=== PATIENT | female | born 1990 | race Caucasian/White ===

== ENCOUNTER 2016-12-24 09:40 | Emergency (ER) | payer OTHER ==
[2016-12-24 10:13] VITALS: BP 141/85; PULSE 89; RESP 16; TEMP 97
[2016-12-24] MEDS ORDERED: methylPREDNISolone SOD SUCCI 125 MG/2 ML VIAL IM ONE (11:13)
--- NOTE | 2016-12-24 11:16 | ED ---
Back Pain HPI - General Chief Complaint: Back Pain/Injury Stated Complaint: back pain Time Seen by Provider: 12/24/16 10:45 Source: patient, RN notes reviewed - History of Present Illness Initial Comments: Patient is a 26-year-old female presents to the emergency room for evaluation of low back pain. Patient states she's been experiencing low back pain radiating down to her right leg since around [place] time. Patient states she went to see her primary care provider about 3 days ago and she was placed on Robaxin and naproxen. Patient states that she was sent to physical therapy. Patient states physical therapy is not helping and her pain is getting worse. Patient states the Robaxin and naproxen are not helping her symptoms. Patient states she she's having pain on the right side of her lower back that radiates down the posterior portion of her right leg. Patient denies numbness or tingling in her toes. Patient denies saddle anesthesia. Patient denies urinary or fecal incontinence. Patient denies any recent injury, fall or trauma to her low back. Patient states she has a follow-up appointment with her primary care provider not until next Saturday. Patient states she can't wait that long. Patient denies any other injuries or complaints at this time. Patient's his pain is worse when she is sitting. Patient states pain improves when she is laying down flat. - Related Data Home Medications Medication Instructions Recorded Confirmed Methocarbamol [Robaxin-750] 750 mg PO Q4H PRN 12/24/16 12/24/16 Naproxen Sodium [Anaprox DS] 550 mg PO Q12HR PRN 12/24/16 12/24/16 Previous Rx's Medication Instructions Recorded HYDROcodone/APAP 5-325MG [[place] 1 tab PO Q6HR PRN #10 tab 12/24/16 5-325] predniSONE 40 mg PO DAILY #4 tab 12/24/16 Allergies Allergy/AdvReac Type Severity Reaction Status Date / Time No Known Allergies Allergy Verified 12/24/16 10:54 Review of Systems ROS Statement: Those systems with pertinent positive or pertinent negative responses have been documented in the HPI. ROS Other: All systems not noted in ROS Statement are negative. Past Medical History Past Medical History: No Reported History History of Any Multi-Drug Resistant Organisms: None Reported Past Surgical History: No Surgical Hx Reported Past Psychological History: No Psychological Hx Reported Smoking Status: Never smoker Past Alcohol Use History: Rare Past Drug Use History: None Reported General Exam - General Exam Comments Initial Comments: Sitting on exam bed, no acute distress. Limitations: no limitations General appearance: alert, in no apparent distress Head exam: Present: atraumatic, normocephalic, normal inspection Eye exam: Present: normal appearance ENT exam: Present: normal exam Neck exam: Present: normal inspection Respiratory exam: Present: normal lung sounds bilaterally. Absent: respiratory distress Cardiovascular Exam: Present: regular rate, normal rhythm, normal heart sounds Extremities exam: Present: normal inspection, full ROM, normal capillary refill Back exam: Present: normal inspection, paraspinal tenderness (Right lumbosacral paraspinal tenderness) Expanded Back exam: Positive Straight Leg Raise: Right Neurological exam: Present: alert, oriented X3, CN II-XII intact Psychiatric exam: Present: normal affect, normal mood Skin exam: Present: warm, dry, intact, normal color. Absent: rash Course Vital Signs 12/24/16 10:09 Temperature 97.0 F L Pulse Rate 89 Respiratory 16 Rate Blood Pressure 141/85 O2 Sat by Pulse 100 Oximetry Medical Decision Making - Medical Decision Making Patient is a 26-year-old female presents emergency room for evaluation of right- sided low back pain. Patient has no neuro deficits. Will place patient on steroids and pain medications. Advised the patient follow up with her primary care provider for reevaluation. Advised patient to return for worsening symptoms. Patient states she understands everything that was discussed with her. Case discussed with Dr. Pham. Disposition Clinical Impression: Right sided sciatica Disposition: HOME SELF-CARE Condition: Good Instructions: Sciatica (ED) Additional Instructions: Warm moist heat. Take medications as needed. Please follow-up with primary care provider for reevaluation. If any new symptom arises or symptoms worsen, return to ER as soon as possible. Prescriptions: HYDROcodone/APAP 5-325MG [[place] 5-325] 1 tab PO Q6HR PRN #10 tab PRN Reason: Pain predniSONE 40 mg PO DAILY #4 tab Referrals: Sofia Major DO [Primary Care Provider] - 1-2 days Time of Disposition: 11:16
== END 2016-12-24 11:29 | disposition home or self-care (01) ==
LOC: EC 09:40
DX: M54.31 Sciatica, right side (principal)
CPT/HCPCS: 99283; 96372; J2930

== ENCOUNTER → 2017-01-10 | Outpatient (CLI) | payer OTHER ==
--- NOTE | 2017-01-11 08:16 | MR ---
EXAMINATION TYPE: MR lumbar spine wo con DATE OF EXAM: 01/10/2017 6:08 PM COMPARISON: NONE HISTORY: LBP with severe radiating pain down rt leg since 11-22-16 TECHNIQUE: T1 and T2 axial and sagittal images of the lumbar spine are submitted. FINDINGS: There is no abnormal signal seen within the visualized spinal cord or paraspinal soft tissu es. At L1-2 there is no evidence of degenerative disc disease, disc herniation, canal stenosis, or forami nal encroachment. At L2-3 there is no evidence of degenerative disc disease, disc herniation, canal stenosis, or forami nal encroachment. At L3-4 there is no evidence of degenerative disc disease, disc herniation, canal stenosis, or forami nal encroachment. At L4-5 there is disc desiccation with annular tear. There is a central and left paracentral broad-ba sed disc protrusion or tiny herniation with mild effacement of thecal sac. Neural foramina remain pat ent. No nerve root impingement. At L5-S1 there is disc desiccation and large right paracentral and central disc herniation with signi ficant compression of the thecal sac. There is narrowing of the right neural foramina and likely mass effect upon the cauda equina. IMPRESSION: 1. Large disc herniation centrally and paracentrally the right L5-S1 with significant compression of the thecal sac paracentrally to the right. 2. Annular tear and broad-based disc protrusion or small herniation L4-L5 centrally and paracentrally to the left with mild effacement of thecal sac but no foraminal encroachment or nerve root impingeme nt.
== END | disposition home or self-care (01) ==
LOC: RADMRIMAIN 16:16
PROVIDERS: ATTEND Family Medicine
DX: M51.17 Intervertebral disc disorders with radiculopathy, lumbosacral region (principal)
CPT/HCPCS: 72148

== ENCOUNTER → 2017-08-26 | Outpatient (CLI) | payer OTHER ==
[2017-08-26 14:25] VITALS: BMI 43.9
[2017-08-26 14:40] VITALS: BP 124/79; PULSE 85; RESP 16; TEMP 98.5
[2017-08-26 14:47] LABS: EKG EKG PERFORMED
--- NOTE | 2017-08-26 14:58 | P.HPBAR ---
Bariatric H&P - History & Physicial H&P Date: 08/26/17 History & Physicial: Visit/CC: sleeve consult Patient initial contact: Initial weight: 124.42 kg Initial weight in pounds: 274.30 Height: 5 ft 6.25 in Initial BMI: 43.9 Last weight: Current weight: 124.42 kg Current weight in pounds: 274.30 Current BMI: 43.9 [place] body weight (based on NIH guidelines): 59.534 kg Excess body weight loss: 0.0% The patient is a 27 year-old F who presents for Bariatric Assessment. The patient resents today for new patient sleeve gastrectomy consultation. She's had lifetime problems obesity. She has severe arthritis of her back. Past Medical History Past Medical History: Asthma, GERD/Reflux, Osteoarthritis (OA) Additional Past Medical History / Comment(s): Chronic back pain (L3-5 ruptured discs), arthritis in bilateral feet, History of Any Multi-Drug Resistant Organisms: None Reported Past Surgical History: No Surgical Hx Reported Past Anesthesia/Blood Transfusion Reactions: No Reported Reaction Past Psychological History: Anxiety Additional Psychological History / Comment(s): Takes Klonopin 0.5mg nightly Smoking Status: Never smoker Past Alcohol Use History: Rare Past Drug Use History: None Reported - Past Family History Mother Family Medical History: Neurologic Disorder Additional Family Medical History / Comment(s): epilepsy, Father Family Medical History: Asthma, Cancer, Diabetes Mellitus, Hypertension Additional Family Medical History / Comment(s): smoker, survivor of renal cancer Surgical - Exam Vital Signs Temp Pulse Resp BP 98.5 F 85 16 124/79 08/26/17 14:04 08/26/17 14:04 08/26/17 14:04 08/26/17 14:04 - General well developed, no distress - Eyes PERRL - ENT normal pinna - Neck no masses - Respiratory normal expansion - Cardiovascular Rhythm: regular - Abdomen Abdomen: soft, non tender Bariatric Assessment & Plan Plan: Family discussion with patient regarding sleeve gastrectomy. We went over the risks and benefits procedure including the risk of gastric perforation. Patient understands the risk of gastric perforation or staple line disruption. Patient will be scheduled for sleeve gastrectomy when she has arthritis. She' ll be scheduled for EGD and some preoperative labs. She'll follow-up in one month. Bariatric Checklist Checklist: Plan: Checklist: EGD: 1. Hiatal hernia: 2. H. Pylori: HgbA1c: Vitamin D: Smoking: Never smoker Primary care physician referral: Sofia Major ([facility] ) Psychiatry clearance: Cardiology clearance: Sleep study: Diet journal: VTE risk score: VTE risk level: Rehab needs at discharge:
[2017-08-26 15:15] LABS: CH 29.5; CHCM 32.7; HCT 45.3 % (34.0-46.0); HDW 2.46; HGB 14.4 gm/dL (11.4-16.0); MCH 28.9 pg (25.0-35.0); MCHC 31.8 g/dL (31.0-37.0); MCV 90.8 fL (80.0-100.0); Mean Platelet Volume 7.1; RBC 4.99 m/uL (3.80-5.40); RDW 14.1 % (11.5-15.5); WBC 9.1 k/uL (3.8-10.6)
[2017-08-26 15:24] LABS: ALT 64 U/L (9-52); AST 30 U/L (14-36); Alkaline Phosphatase 57 U/L (38-126); Anion Gap 11 mmol/L; Blood Urea Nitrogen 12 mg/dL (7-17); Calcium 9.6 mg/dL (8.4-10.2); Carbon Dioxide 26 mmol/L (22-30); Chloride 103 mmol/L (98-107); Glucose 79 mg/dL (74-99); Non-African American GFR(MDRD) >60 (>60 ml/min/1.73 sqM); Potassium 4.5 mmol/L (3.5-5.1); Sodium 140 mmol/L (137-145); Total Bilirubin 0.5 mg/dL (0.2-1.3); Total Protein 7.2 g/dL (6.3-8.2)
[2017-08-26 20:16] LABS: Hemoglobin A1C 5.4 % (4.2-6.1)
== END ==
LOC: BARWHC3 13:28
PROVIDERS: ATTEND Surgery
DX: Z01.818 Encounter for other preprocedural examination (principal); J45.909 Unspecified asthma, uncomplicated; K21.9 Gastro-esophageal reflux disease without esophagitis; M19.90 Unspecified osteoarthritis, unspecified site; F41.9 Anxiety disorder, unspecified
CPT/HCPCS: 36415; 80053; 82306; 83036; 84443; 85027; 93005

== ENCOUNTER 2017-09-04 08:52 | Day surgery (SDC) | payer OTHER ==
[2017-09-03 08:44] VITALS: BMI 44.2
[~2017-09-04 08:52] MED LIST: LACTATED RINGERS 1,000 ML IV SCH; LIDOCAINE 1% 20 ML VIAL (10MG/ML) FOR IV START INTRADERMA PRN
[2017-09-04 09:21] VITALS: RESP 16; TEMP 99
[2017-09-04] MEDS ORDERED: PROPOFOL 10 MG/ML 20 ML VIAL IV ONE (09:39)
[2017-09-04] MEDS ORDERED: LIDOCAINE 1% INJ 10MG/ML (20 ML MDV) ONE (09:39)
--- NOTE | 2017-09-04 09:45 | P.GSHP ---
History of Present Illness H&P Date: 09/04/17 Chief Complaint: GERD, morbid obesity Is a 19-year-old female who is undergoing workup for sleeve gastrectomy. Patient's history of GERD. She presents today for EGD. Past Medical History Past Medical History: Asthma, GERD/Reflux, Osteoarthritis (OA) Additional Past Medical History / Comment(s): Chronic back pain (L3-5 ruptured discs), IBS, arthritis in feet, History of Any Multi-Drug Resistant Organisms: None Reported Past Surgical History: No Surgical Hx Reported Additional Past Surgical History / Comment(s): oral surgery Past Anesthesia/Blood Transfusion Reactions: No Reported Reaction Smoking Status: Never smoker - Past Family History Mother Family Medical History: Neurologic Disorder Additional Family Medical History / Comment(s): epilepsy, Father Family Medical History: Cancer, Deep Vein Thrombosis (DVT) Additional Family Medical History / Comment(s): . Medications and Allergies Home Medications Medication Instructions Recorded Confirmed Type Acetaminophen-Codeine 300-30mg 1 tab PO HS 08/26/17 09/04/17 History [Tylenol #3] Escitalopram [Lexapro] 10 mg PO HS 09/03/17 09/04/17 History Gabapentin [Neurontin] 100 mg PO HS 09/03/17 09/04/17 History Allergies Allergy/AdvReac Type Severity Reaction Status Date / Time No Known Allergies Allergy Verified 09/04/17 09:05 Surgical - Exam Vital Signs Temp Pulse Resp BP Pulse Ox 99.0 F 100 16 125/77 99 09/04/17 09:15 09/04/17 09:15 09/04/17 09:15 09/04/17 09:15 09/04/17 09:15 - General well developed, no distress - Eyes PERRL - ENT normal pinna - Neck no masses - Respiratory normal expansion - Cardiovascular Rhythm: regular - Abdomen Abdomen: soft, non tender Assessment and Plan Plan: GERD. We'll perform EGD.
--- NOTE | 2017-09-04 09:55 | P.OP ---
Date of Procedure: 09/04/17 Preoperative Diagnosis: GERD Morbid obesity Postoperative Diagnosis: Gastritis No evidence of hiatal hernia Morbid obesity BMI 44 Procedure(s) Performed: EGD Anesthesia: MAC Surgeon: Tj Jorge Pathology: other (Antral) Condition: stable Disposition: PACU Description of Procedure: Patient's placed on the endoscopy table lateral position. He received IV sedation. The gastroscope placed oropharynx passed in the esophagus and stomach. Scope was then placed through the pylorus. First and second portion of the duodenum appeared normal. Scope was then brought back the antrum this appeared mildly inflamed. A biopsies performed. The scope was then retroflexed and the remainder stomach appeared normal. There is no hiatal hernia. The GE junction was at 40 cm. The distal esophagus appeared all. The proximal esophagus appeared normal. Scope was withdrawn for patient.
[2017-09-04 10:23] VITALS: BP 117/81; PULSE 65
== END 2017-09-04 11:15 | disposition home or self-care (01) ==
LOC: ORWHC2ENDO 08:52
PROVIDERS: ATTEND Surgery
DX: K29.50 Unspecified chronic gastritis without bleeding (principal); E66.01 Morbid (severe) obesity due to excess calories; Z68.41 Body mass index [BMI] 40.0-44.9, adult; J45.909 Unspecified asthma, uncomplicated; M19.90 Unspecified osteoarthritis, unspecified site; G89.29 Other chronic pain; M54.5 Low back pain; Z79.891 Long term (current) use of opiate analgesic; Z79.899 Other long term (current) drug therapy
CPT/HCPCS: 81025; 88305; 88342; 43239; J2001; J2704

== ENCOUNTER → 2017-10-21 | Outpatient (CLI) | payer OTHER ==
[2017-10-21 13:26] VITALS: BP 125/82; PULSE 81; TEMP 98.4; BMI 44.2
--- NOTE | 2017-10-21 14:51 | P.HPBAR ---
Bariatric H&P - History & Physicial H&P Date: 10/21/17 History & Physicial: Visit/CC: preoo visit Patient initial contact: Initial weight: 124.42 kg Initial weight in pounds: 274.30 Height: 5 ft 7.25 in Initial BMI: 42.6 Last weight: Current weight: 129.092 kg Current weight in pounds: 284.60 Current BMI: 44.2 [place] body weight (based on NIH guidelines): 61.802 kg Excess body weight loss: The patient is a 27 year-old F who presents for Bariatric Assessment. The patient resents today for a new patient consultation. She sees Dr. arvizu as an outpatient. The patient is requesting sleeve yesterday. She has had lifetime problems obesity. Her current BMI is 44. Past Medical History Past Medical History: Asthma, GERD/Reflux, Osteoarthritis (OA) Additional Past Medical History / Comment(s): Chronic back pain (L3-5 ruptured discs), IBS, arthritis in feet, History of Any Multi-Drug Resistant Organisms: None Reported Past Surgical History: No Surgical Hx Reported Additional Past Surgical History / Comment(s): oral surgery Past Anesthesia/Blood Transfusion Reactions: No Reported Reaction Past Psychological History: Anxiety Additional Psychological History / Comment(s): . Smoking Status: Never smoker Past Alcohol Use History: Rare Past Drug Use History: None Reported - Past Family History Mother Family Medical History: Neurologic Disorder Additional Family Medical History / Comment(s): epilepsy, Father Family Medical History: Cancer, Deep Vein Thrombosis (DVT) Additional Family Medical History / Comment(s): . Surgical - Exam Vital Signs Temp Pulse BP 98.4 F 81 125/82 10/21/17 13:21 10/21/17 13:21 10/21/17 13:21 - General well developed, no distress - Eyes PERRL - ENT normal pinna - Neck no masses - Respiratory normal expansion - Cardiovascular Rhythm: regular - Abdomen Abdomen: soft, non tender Bariatric Assessment & Plan Plan: Moderate obesity. Patient will scheduled for sleeve gastrectomy when she obtains insurance authorization. Bariatric Checklist Checklist: Plan: Checklist: EGD: 1. Hiatal hernia: 2. H. Pylori: HgbA1c: Vitamin D: Smoking: Never smoker Primary care physician referral: Sofia Major ([facility] ) Psychiatry clearance: Cardiology clearance: Sleep study: Diet journal: VTE risk score: VTE risk level: Rehab needs at discharge:
== END | disposition home or self-care (01) ==
LOC: BARWHC3 12:34
PROVIDERS: ATTEND Surgery
DX: Z01.818 Encounter for other preprocedural examination (principal); E66.01 Morbid (severe) obesity due to excess calories; F32.9 Major depressive disorder, single episode, unspecified
CPT/HCPCS: 99211

== ENCOUNTER → 2017-11-04 | Outpatient (CLI) | payer OTHER ==
[2017-11-04 13:08] VITALS: BMI 45.3
== END | disposition home or self-care (01) ==
LOC: BARWHC3 08:49
PROVIDERS: ATTEND Surgery
DX: E66.01 Morbid (severe) obesity due to excess calories (principal)
CPT/HCPCS: 97804

== ENCOUNTER → 2017-12-19 | Outpatient (CLI) | payer OTHER ==
[2017-12-19 13:43] LABS: Basophils # (A) 0.1 k/uL (0-0.2); Basophils % (A) 1 %; Eosinophils # (A) 0.2 k/uL (0-0.7); Eosinophils % (A) 2 %; HCT 43.1 % (34.0-46.0); HGB 13.6 gm/dL (11.4-16.0); Lymphocytes # (A) 2.7 k/uL (1.0-4.8); Lymphocytes % (A) 25 %; MCH 28.1 pg (25.0-35.0); MCHC 31.5 g/dL (31.0-37.0); MCV 89.3 fL (80.0-100.0); Mean Platelet Volume 7.5; Monocytes # (A) 0.6 k/uL (0-1.0); Monocytes % (A) 6 %; Neutrophils # (A) 7.1 k/uL (1.3-7.7); Neutrophils % (A) 65 %; Platelet Count 255 k/uL (150-450); RBC 4.83 m/uL (3.80-5.40); RDW 14.2 % (11.5-15.5); WBC 10.9 k/uL (3.8-10.6)
[2017-12-19 13:52] LABS: ALT 61 U/L (9-52); AST 29 U/L (14-36); Albumin 4.4 g/dL (3.5-5.0); Alkaline Phosphatase 48 U/L (38-126); Anion Gap 11 mmol/L; Blood Urea Nitrogen 10 mg/dL (7-17); Calcium 10.2 mg/dL (8.4-10.2); Carbon Dioxide 27 mmol/L (22-30); Chloride 104 mmol/L (98-107); Glucose 100 mg/dL (74-99); Potassium 4.3 mmol/L (3.5-5.1); Sodium 142 mmol/L (137-145); Total Bilirubin 0.3 mg/dL (0.2-1.3); Total Protein 7.5 g/dL (6.3-8.2)
== END | disposition home or self-care (01) ==
LOC: LABPAT 12:31
PROVIDERS: ATTEND Surgery
DX: Z01.812 Encounter for preprocedural laboratory examination (principal)
CPT/HCPCS: 36415; 80053; 85025

== ENCOUNTER 2017-12-25 12:51 | Day surgery (SDC) | payer OTHER ==
[2017-12-18 11:54] VITALS: BMI 43.8
[~2017-12-25 12:51] MED LIST changes: +HYDROmorphone 0.5 MG/0.5 ML SYRINGE IVP PRN
--- NOTE | 2017-12-25 13:35 | P.GSHP ---
History of Present Illness H&P Date: 12/25/17 Chief Complaint: Cholecystitis, right upper quadrant pain This is a 27-year-old female referred from Dr. Sofia arvizu. Patient's echo placed around quadrant pain. Her recent HIDA scan shows abnormal ejection fraction consistent with chronic cholecystitis. Past Medical History Past Medical History: Asthma, GERD/Reflux, Osteoarthritis (OA) Additional Past Medical History / Comment(s): Chronic back pain (L3-5 ruptured discs), IBS, arthritis in feet, History of Any Multi-Drug Resistant Organisms: None Reported Past Surgical History: No Surgical Hx Reported Additional Past Surgical History / Comment(s): oral surgery Past Anesthesia/Blood Transfusion Reactions: No Reported Reaction, Family Hisory of Malignant Hyperthermia Additional Past Anesthesia/Blood Transfusion Reaction / Comment(s): brother becomes violent with anesthesia Smoking Status: Never smoker - Past Family History Mother Family Medical History: Neurologic Disorder Additional Family Medical History / Comment(s): epilepsy, Father Family Medical History: Cancer, Deep Vein Thrombosis (DVT) Additional Family Medical History / Comment(s): . Medications and Allergies Home Medications Medication Instructions Recorded Confirmed Type Acetaminophen-Codeine 300-30mg 1 tab PO HS 08/26/17 12/18/17 History [Tylenol #3] Gabapentin [Neurontin] 100 mg PO HS 09/03/17 12/18/17 History Cholestyramine (with Sugar) 4 gm PO TID 10/21/17 12/18/17 History [Cholestyramine Packet] Hyoscyamine Sulfate [Levsin] 0.125 mg PO DIRECTED 10/21/17 12/18/17 History Dm/PE/Acetaminophen/Doxylamine 1 each PO HS PRN 12/18/17 12/18/17 History [[place] Plus Day-Night Cp] Ibuprofen [Motrin] 800 mg PO HS PRN 12/18/17 12/18/17 History Allergies Allergy/AdvReac Type Severity Reaction Status Date / Time No Known Allergies Allergy Verified 12/25/17 13:18 Surgical - Exam Vital Signs Temp Pulse Resp BP Pulse Ox 98 F 121 H 16 142/79 97 12/25/17 13:28 12/25/17 13:28 12/25/17 13:28 12/25/17 13:28 12/25/17 13:28 - General well developed, no distress - Eyes PERRL - ENT normal pinna - Neck no masses - Respiratory normal expansion - Cardiovascular Rhythm: regular - Abdomen Mild right upper quadrant pain Abdomen: soft Assessment and Plan Assessment: Chronic cholecystitis. We'll perform laparoscopic cholecystectomy.
[2017-12-25] MEDS ORDERED: ONDANSETRON 4 MG/2 ML VIAL IVP ONE (13:38)
[2017-12-25] MEDS ORDERED: HEPARIN SODIUM,PORCINE 5,000 UNIT/ML 1 ML VIAL SQ ONE (13:38)
[2017-12-25] MEDS ORDERED: HYDROmorphone (PF) 1 MG/ML ONE (14:20)
[2017-12-25] MEDS ORDERED: MIDAZOLAM 2 MG/2 ML VIAL ONE (14:20)
[2017-12-25] MEDS ORDERED: ROCURONIUM BROMIDE 10 MG/ML 10 ML VIAL IV ONE (14:20)
[2017-12-25] MEDS ORDERED: fentaNYL (PF) 50 MCG/ML 2 ML AMP ONE (14:20)
[2017-12-25] MEDS ORDERED: LIDOCAINE 1% INJ 10MG/ML (20 ML MDV) ONE (14:20)
[2017-12-25] MEDS ORDERED: KETOROLAC 30 MG/ML 1 ML VIAL ONE (14:20)
[2017-12-25] MEDS ORDERED: NEOSTIGMINE 1 MG/ML 10 ML VIAL ONE (14:20)
[2017-12-25] MEDS ORDERED: PROPOFOL 10 MG/ML 20 ML VIAL IV ONE (14:20)
[2017-12-25] MEDS ORDERED: GLYCOPYRROLATE 0.2 MG/ML 2 ML VIAL ONE (14:20)
--- NOTE | 2017-12-25 14:38 | P.GSHP ---
History of Present Illness H&P Date: 12/25/17 Chief Complaint: GERD This is a 27-year-old female who presents today for laparoscopic hiatal hernia repair. Patient has had long-standing problems reflux.The patient has had long- standing problems with reflux esophagitis. The patient underwent recent EGD is found have evidence of esophagitis. Patient has been well informed on the procedure of laparoscopic hiatal hernia repair. . The patient is aware the risk of the conversion to the open procedure, risk of injury to the stomach, liver and spleen. The patient is also a risk of recurrent GERD and dysphagia symptoms. The patient understands there is a postoperative diet of full liquids for 2 weeks after surgery. Past Medical History Past Medical History: Asthma, GERD/Reflux, Osteoarthritis (OA) Additional Past Medical History / Comment(s): Chronic back pain (L3-5 ruptured discs), IBS, arthritis in feet, History of Any Multi-Drug Resistant Organisms: None Reported Past Surgical History: No Surgical Hx Reported Additional Past Surgical History / Comment(s): oral surgery Past Anesthesia/Blood Transfusion Reactions: No Reported Reaction, Family Hisory of Malignant Hyperthermia Additional Past Anesthesia/Blood Transfusion Reaction / Comment(s): brother becomes violent with anesthesia Smoking Status: Never smoker - Past Family History Mother Family Medical History: Neurologic Disorder Additional Family Medical History / Comment(s): epilepsy, Father Family Medical History: Cancer, Deep Vein Thrombosis (DVT) Additional Family Medical History / Comment(s): . Medications and Allergies Home Medications Medication Instructions Recorded Confirmed Type Acetaminophen-Codeine 300-30mg 1 tab PO HS 08/26/17 12/18/17 History [Tylenol #3] Gabapentin [Neurontin] 100 mg PO HS 09/03/17 12/18/17 History Cholestyramine (with Sugar) 4 gm PO TID 10/21/17 12/18/17 History [Cholestyramine Packet] Hyoscyamine Sulfate [Levsin] 0.125 mg PO DIRECTED 10/21/17 12/18/17 History Dm/PE/Acetaminophen/Doxylamine 1 each PO HS PRN 12/18/17 12/18/17 History [[place] Plus Day-Night Cp] Ibuprofen [Motrin] 800 mg PO HS PRN 12/18/17 12/18/17 History Allergies Allergy/AdvReac Type Severity Reaction Status Date / Time No Known Allergies Allergy Verified 12/25/17 13:18 Surgical - Exam Vital Signs Temp Pulse Resp BP Pulse Ox 98 F 121 H 16 142/79 97 12/25/17 13:28 12/25/17 13:28 12/25/17 13:28 12/25/17 13:28 12/25/17 13:28 - General well developed, no distress - Eyes PERRL - ENT normal pinna - Neck no masses - Respiratory normal expansion - Cardiovascular Rhythm: regular - Abdomen Abdomen: soft, non tender Assessment and Plan Assessment: Hiatal hernia. We'll perform laparoscopic repair.
[2017-12-25] MEDS ORDERED: BUPIVACAINE (PF) 0.25% 30 ML VIAL SQ ONE (14:45)
[2017-12-25] MEDS ORDERED: MEPERIDINE 50 MG/ML SYRINGE IVP ONE ×2 (15:35→15:45)
[2017-12-25 15:44] VITALS: TEMP 97.1
[2017-12-25 16:37] VITALS: RESP 18
--- NOTE | 2017-12-25 16:51 | P.OP ---
Date of Procedure: 12/25/17 Preoperative Diagnosis: Cholecystitis Postoperative Diagnosis: Cholecystitis Procedure(s) Performed: Laparoscopic cholecystectomy Anesthesia: MOOK Surgeon: Tj Jorge Estimated Blood Loss (ml): 5 Pathology: other Condition: stable Disposition: PACU Description of Procedure: The patient was placed on the operating table. The patient received a general endotracheal tube anesthesia. The patients abdomen was prepped and draped in the usual sterile fashion. Through an infraumbilical stab incision, the fascia of the anterior abdominal wall was grasped with a pair of Kochers and then the Veress needle was placed in the peritoneal cavity. Position of the Veress needle was confirmed with positive drop test. The abdomen was then insufflated. After adequate insufflation, the 10 mm trocar was placed in the peritoneal cavity. Following this the laparoscope was placed in the peritoneal cavity. The patient was placed in the head-up, right side up position and then a 5 mm trocar was placed in the right lateral and right subcostal position under direct visualization. A 8 mm trocar was placed in the epigastric position. The gallbladder was grasped in the fundus and infundibulum. Traction on the gallbladder was placed in the lateral and the cephalad positions. The triangle of Calot was visualized.. The cystic duct was bluntly dissected until the union of the cystic duct and common bile duct was seen. The cystic duct was then divided and sealed with the Harmonic scissors. A PDS Endoloop was then placed throughout the cystic duct stump. The cystic artery divided and sealed with the Harmonic scissors. The gallbladder was then removed from the liver bed using Harmonic scissors. The gallbladder was then extracted through the epigastric port site. Operative field was checked for any bleeding spots and Harmonic scissors was used to coagulate the liver bed. The abdomen was irrigated. The trocars were removed. The skin was closed using interrupted 3-0 Vicryl suture. Dermabond dressing were applied. The patient tolerated the procedure well.
[2017-12-25] MEDS ORDERED: HYDROmorphone 1 MG/ML 1 ML SYRINGE IVP ONE (16:55)
[2017-12-25 17:48] VITALS: BP 130/84; PULSE 73
== END 2017-12-25 18:08 | disposition home or self-care (01) ==
LOC: OR 12:51
PROVIDERS: ATTEND Surgery
DX: K81.1 Chronic cholecystitis (principal); J45.909 Unspecified asthma, uncomplicated; K21.9 Gastro-esophageal reflux disease without esophagitis; K58.9 Irritable bowel syndrome, unspecified; M19.079 Primary osteoarthritis, unspecified ankle and foot; G89.29 Other chronic pain; M54.9 Dorsalgia, unspecified; Z79.899 Other long term (current) drug therapy
CPT/HCPCS: 47562; 81025; J2250; J1644; J2710; J2175; J0690; J2405; J2001; J3010; J1885; J1170; J2704; 88304

== ENCOUNTER → 2017-12-30 | Outpatient (CLI) | payer OTHER ==
[2017-12-30 14:11] VITALS: BP 126/81; PULSE 119; RESP 16; TEMP 98; BMI 44.0
--- NOTE | 2017-12-30 14:58 | P.HPBAR ---
Bariatric H&P - History & Physicial H&P Date: 12/30/17 History & Physicial: Visit/CC: gallbladder follow up Patient initial contact: Initial weight: 124.42 kg Initial weight in pounds: 274.30 Height: 5 ft 6.25 in Initial BMI: 43.9 Last weight: Current weight: 124.738 kg Current weight in pounds: 275.00 Current BMI: 44.0 [place] body weight (based on NIH guidelines): 59.534 kg Excess body weight loss: The patient is a 27 year-old F who presents for Bariatric Assessment. The patient is status post laparoscopic cholecystectomy the week ago.. She has minimal complaints of incisional pain. Currently she was denied for her sleeve gastrectomy she is undergoing sleep apnea testing. Past Medical History Past Medical History: Asthma, GERD/Reflux, Osteoarthritis (OA) Additional Past Medical History / Comment(s): Chronic back pain (L3-5 ruptured discs), IBS, arthritis in feet, History of Any Multi-Drug Resistant Organisms: None Reported Past Surgical History: No Surgical Hx Reported Additional Past Surgical History / Comment(s): oral surgery gallbladder Past Anesthesia/Blood Transfusion Reactions: No Reported Reaction, Family Hisory of Malignant Hyperthermia Additional Past Anesthesia/Blood Transfusion Reaction / Comm: brother becomes violent with anesthesia Past Psychological History: Anxiety Additional Psychological History / Comment(s): . Smoking Status: Never smoker Past Alcohol Use History: Rare Past Drug Use History: None Reported - Past Family History Mother Family Medical History: Neurologic Disorder Additional Family Medical History / Comment(s): epilepsy, Father Family Medical History: Cancer, Deep Vein Thrombosis (DVT) Additional Family Medical History / Comment(s): . Surgical - Exam Vital Signs Temp Pulse Resp BP 98.0 F 119 H 16 126/81 12/30/17 14:07 12/30/17 14:07 12/30/17 14:07 12/30/17 14:07 - General well developed, no distress - Eyes PERRL - ENT normal pinna - Neck no masses - Respiratory normal expansion - Abdomen Incision sites clean dry and intact Abdomen: soft, non tender Bariatric Assessment & Plan Plan: Status post laparoscopic cholestatic. Patient will follow-up in one month. She will have her sleep study performed. We will attempt to reauthorized her once her study has been performed. He takes anesthesia these of injury drinks and Bariatric Checklist Checklist: Plan: Checklist: EGD: 1. Hiatal hernia: 2. H. Pylori: HgbA1c: Vitamin D: Smoking: Never smoker Primary care physician referral: Sofia Major ([facility] ) Psychiatry clearance: Cardiology clearance: Sleep study: Diet journal: VTE risk score: VTE risk level: Rehab needs at discharge:
== END | disposition home or self-care (01) ==
LOC: BARWHC3 13:55
PROVIDERS: ATTEND Surgery
DX: Z48.815 Encounter for surgical aftercare following surgery on the digestive system (principal); G89.18 Other acute postprocedural pain; G89.29 Other chronic pain; J45.909 Unspecified asthma, uncomplicated; K21.9 Gastro-esophageal reflux disease without esophagitis; M19.90 Unspecified osteoarthritis, unspecified site; F41.9 Anxiety disorder, unspecified; Z90.49 Acquired absence of other specified parts of digestive tract
CPT/HCPCS: 99211

== ENCOUNTER → 2018-01-07 | Outpatient (CLI) | payer OTHER ==
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
== END | disposition home or self-care (01) ==
LOC: SLEEP 15:06
PROVIDERS: ATTEND Internal Medicine Critical Care Medicine
DX: R40.0 Somnolence (principal); M19.90 Unspecified osteoarthritis, unspecified site; K21.9 Gastro-esophageal reflux disease without esophagitis; M51.36 Other intervertebral disc degeneration, lumbar region; E66.01 Morbid (severe) obesity due to excess calories; Z68.42 Body mass index [BMI] 45.0-49.9, adult; Z79.899 Other long term (current) drug therapy
CPT/HCPCS: 99211

== ENCOUNTER → 2018-01-27 | Outpatient (CLI) | payer OTHER ==
[2018-01-27 15:53] VITALS: BP 125/67; PULSE 98; RESP 15; TEMP 98.3; BMI 42.7
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
== END | disposition home or self-care (01) ==
LOC: BARWHC3 13:43
PROVIDERS: ATTEND Surgery
DX: Z48.815 Encounter for surgical aftercare following surgery on the digestive system (principal); Z98.84 Bariatric surgery status
CPT/HCPCS: 99211

== ENCOUNTER 2018-10-19 03:32 | Emergency (ER) | payer OTHER ==
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
[2018-10-19 04:11] LABS: Appearance,Urine Clear (Clear); Bacteria,Urine Rare /hpf; Bilirubin,Urine Negative (Negative); Blood,Urine Large (Negative); Color,Urine Yellow; Glucose,Urine (UA) Negative (Negative); Hyaline Casts,Urine 28 /lpf (0-2); Ketones,Urine Negative (Negative); Leukocyte Esterase,Urine Negative (Negative); Mucus,Urine Few /hpf; Nitrite,Urine Negative (Negative); Protein,Urine 1+ (Negative); RBC,Urine >182 /hpf (0-5); Specific Gravity,Urine 1.022 (1.001-1.035); Squamous Epithelial Cell,Urine 5 /hpf (0-4); Urobilinogen,Urine <2.0 mg/dL (<2.0); WBC,Urine 3 /hpf (0-5)
[2018-10-19] MEDS ORDERED: KETOROLAC 30 MG/ML 1 ML VIAL IVP ONE (04:15)
[2018-10-19] MEDS ORDERED: SODIUM CHLORIDE 0.9% 1,000 ML IV ONE (04:54)
--- NOTE | 2018-10-19 05:06 | CT ---
EXAMINATION TYPE: CT renal stones wo con DATE OF EXAM: 10/19/2018 HISTORY: left sided flank pain. CT DLP: 1094.4 mGycm. Automated Exposure Control for Dose Reduction was Utilized. TECHNIQUE: CT scan of the abdomen and pelvis is performed without oral or IV contrast. COMPARISON: None FINDINGS: Lung bases are clear. There is no pleural effusion. Heart size is normal. There is no anthony cardial effusion. Liver spleen pancreas appear normal. Bile ducts are not dilated. There is cholecystectomy clips. Stom ach appears normal. There is no adrenal mass. Kidneys show normal size and contour. There is no hydronephrosis. Ureters a re not dilated. I see no renal calculus. There is no evidence of a renal mass. There is no retroperit joseph adenopathy. Ureters are not dilated. Appendix appears normal. Uterus is anteverted. Bladder dis tends smoothly. There is no inguinal hernia. There is no free fluid in the pelvis. There is no intest inal wall thickening. There are no dilated loops. There is no sign of a bowel obstruction. There is n o mesenteric edema or adenopathy. There are scattered mesenteric lymph nodes that measure up to 1 cm. I see no ureteral calculus. There are a few phleboliths in the pelvis. Lumbar vertebra have normal a lignment. Posterior elements are intact. Disc spaces are normal. There is no compression fracture. IMPRESSION: No renal stone or obstruction. Normal appendix. No sign of acute abdomen and pelvis.
[2018-10-19 06:03] VITALS: BP 111/62; PULSE 81; RESP 18; TEMP 98.3
--- NOTE | 2018-10-21 06:16 | CDI ---
Documentation Clarification OP Dear Christine PERALTA, DO Please do addendum to ED report for HPI , Physical exam and MDM. Thank you, Mercy Barr Sales Enablement Manager If you have any question, Please contact delivery manager at [phone] [facility]
== END 2018-10-19 06:07 | disposition home or self-care (01) ==
LOC: EC 03:32
DX: R10.9 Unspecified abdominal pain (principal); R30.0 Dysuria; R35.0 Frequency of micturition; M19.90 Unspecified osteoarthritis, unspecified site; Z79.899 Other long term (current) drug therapy; Z90.49 Acquired absence of other specified parts of digestive tract
CPT/HCPCS: 81001; 81025; 74150; 99284; 96374; 96361; J1885

== ENCOUNTER 2018-12-08 04:02 | Emergency (ER) | payer OTHER, MEDICAID ==
[2018-12-08 04:12] VITALS: RESP 18; TEMP 98.5
[2018-12-08] MEDS ORDERED: DICYCLOMINE 10 MG/ML 2 ML AMP IM STA (05:20)
[2018-12-08] MEDS ORDERED: SODIUM CHLORIDE 0.9% 1,000 ML IV STA (05:20)
[2018-12-08] MEDS ORDERED: ONDANSETRON 4 MG/2 ML VIAL IVP STA (05:20)
[2018-12-08] MEDS ORDERED: DOXYCYCLINE 100 MG CAP PO STA (05:25)
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
[2018-12-08 06:00] LABS: Basophils % (A) 1 %; Eosinophils # (A) 0.1 k/uL (0-0.7); Eosinophils % (A) 1 %; HCT 46.2 % (34.0-46.0); Lymphocytes # (A) 0.8 k/uL (1.0-4.8); Lymphocytes % (A) 13 %; MCHC 32.4 g/dL (31.0-37.0); MCV 86.5 fL (80.0-100.0); Mean Platelet Volume 6.8; Monocytes # (A) 0.4 k/uL (0-1.0); Monocytes % (A) 6 %; Neutrophils # (A) 4.9 k/uL (1.3-7.7); Neutrophils % (A) 78 %; Platelet Count 240 k/uL (150-450); RBC 5.34 m/uL (3.80-5.40); RDW 12.8 % (11.5-15.5); WBC 6.3 k/uL (3.8-10.6)
[2018-12-08 06:04] LABS: Appearance,Urine Cloudy (Clear); Bilirubin,Urine 1+ (Negative); Blood,Urine Large (Negative); Color,Urine Dark Brown; Glucose,Urine (UA) Negative (Negative); Ketones,Urine Trace (Negative); Leukocyte Esterase,Urine Moderate (Negative); Mucus,Urine Occasional /hpf; Nitrite,Urine Negative (Negative); Protein,Urine 2+ (Negative); RBC,Urine >182 /hpf (0-5); Specific Gravity,Urine 1.027 (1.001-1.035); Squamous Epithelial Cell,Urine 14 /hpf (0-4); WBC,Urine 51 /hpf (0-5)
[2018-12-08 06:09] LABS: ALT 63 U/L (9-52); AST 36 U/L (14-36); Albumin 4.4 g/dL (3.5-5.0); Alkaline Phosphatase 43 U/L (38-126); Amylase 38 U/L (30-110); Anion Gap 12 mmol/L; Blood Urea Nitrogen 10 mg/dL (7-17); Calcium 9.7 mg/dL (8.4-10.2); Carbon Dioxide 18 mmol/L (22-30); Chloride 109 mmol/L (98-107); Glucose 122 mg/dL (74-99); Lipase 114 U/L (23-300); Potassium 4.1 mmol/L (3.5-5.1); Sodium 139 mmol/L (137-145); Total Bilirubin 0.8 mg/dL (0.2-1.3); Total Protein 7.5 g/dL (6.3-8.2)
[2018-12-08] MEDS ORDERED: SODIUM CHLORIDE 0.9% 1,000 ML IV ONE (07:05)
[2018-12-08] MEDS ORDERED: METOCLOPRAMIDE 5 MG/ML 2 ML VIAL IVP STA (07:10)
[2018-12-08] MEDS ORDERED: diphenhydrAMINE 50 MG/ML 1 ML VIAL IVP STA (07:10)
[2018-12-08 08:52] VITALS: BP 121/70; PULSE 92
== END 2018-12-08 08:51 | disposition home or self-care (01) ==
LOC: EC 04:02
DX: R11.2 Nausea with vomiting, unspecified (principal); R19.7 Diarrhea, unspecified; R10.84 Generalized abdominal pain; Z32.02 Encounter for pregnancy test, result negative; Z79.899 Other long term (current) drug therapy; Z90.49 Acquired absence of other specified parts of digestive tract
CPT/HCPCS: 36415; 80053; 82150; 83690; 85025; 81001; 81025; 87045; 87046; 99284; 96374; 96375 ×2; 96361 ×2; 96372; J1200; J0500; J2765; J2405

== ENCOUNTER 2018-12-10 14:58 | Emergency (ER) | payer MEDICAID, OTHER ==
[2018-12-10] MEDS ORDERED: METOCLOPRAMIDE 5 MG/ML 2 ML VIAL IVP STA (17:29)
[2018-12-10] MEDS ORDERED: SODIUM CHLORIDE 0.9% 2,000 ML IV STA (17:29)
[2018-12-10] MEDS ORDERED: diphenhydrAMINE 50 MG/ML 1 ML VIAL IVP STA (17:29)
[2018-12-10] MEDS ORDERED: PANTOPRAZOLE 40 MG/10 ML VIAL IVP STA (17:29)
[2018-12-10] MEDS ORDERED: KETOROLAC 30 MG/ML 1 ML VIAL IVP STA (17:29)
[2018-12-10] MEDS ORDERED: DIPHENOX-ATROP 2.5-0.025 MG 1 EACH TAB PO STA (17:30)
--- NOTE | 2018-12-10 18:17 | ED ---
Abdominal Pain HPI - General Source: patient, RN notes reviewed Mode of arrival: ambulatory Limitations: no limitations <Manuel Babb - Last Filed: 12/10/18 19:54> <Sandrine Curran - Last Filed: 12/11/18 00:38> - General Chief Complaint: Abdominal Pain Stated Complaint: NVD Time Seen by Provider: 12/10/18 17:05 - History of Present Illness Initial Comments: 28-year-old female presents emergency Department chief complaint nausea vomiting diarrhea. Patient states she seen here couple days ago for some her symptoms. Patient states when she feels dehydrated, leg cramps. Patient states she has abdominal cramping in. Liquid diarrhea. Patient states is no melena hematochezia. Patient states she is treated with antibiotics secondary to urinary tract infection and possible infection from being exposed to a sick ago. Patient denies any sick contacts no fever no chills. Denies any chest pain or shortness breath. (Manuel Babb) - Related Data Home Medications Medication Instructions Recorded Confirmed Ibuprofen [Motrin] 800 mg PO TID PRN 12/18/17 12/10/18 Gabapentin 800 mg PO TID 12/08/18 12/10/18 Previous Rx's Medication Instructions Recorded Doxycycline [Vibramycin] 100 mg PO BID #14 cap 12/08/18 Nitrofurantoin Monohyd/M-Cryst 100 mg PO Q12HR #10 cap 12/08/18 [Macrobid] Ondansetron [Zofran ODT] 4 mg PO Q8HR #12 tab 12/08/18 Allergies Allergy/AdvReac Type Severity Reaction Status Date / Time No Known Allergies Allergy Verified 12/10/18 18:55 Review of Systems ROS Other: All systems not noted in ROS Statement are negative. <Manuel Babb - Last Filed: 12/10/18 19:54> ROS Other: All systems not noted in ROS Statement are negative. <Sandrine Curran - Last Filed: 12/11/18 00:38> ROS Statement: Those systems with pertinent positive or pertinent negative responses have been documented in the HPI. Past Medical History Past Medical History: Asthma, GERD/Reflux, Osteoarthritis (OA) Additional Past Medical History / Comment(s): Chronic back pain (L3-5 ruptured discs), IBS, arthritis in feet, History of Any Multi-Drug Resistant Organisms: None Reported Past Surgical History: Cholecystectomy Additional Past Surgical History / Comment(s): oral surgery Past Anesthesia/Blood Transfusion Reactions: No Reported Reaction, Family Hisory of Malignant Hyperthermia Additional Past Anesthesia/Blood Transfusion Reaction / Comment(s): brother becomes violent with anesthesia Past Psychological History: Anxiety Smoking Status: Never smoker Past Alcohol Use History: Rare Past Drug Use History: None Reported - Past Family History Mother Family Medical History: Neurologic Disorder Additional Family Medical History / Comment(s): epilepsy, Father Family Medical History: Cancer, Deep Vein Thrombosis (DVT) Additional Family Medical History / Comment(s): . <Manuel Babb M - Last Filed: 12/10/18 19:54> General Exam Limitations: no limitations General appearance: alert, in no apparent distress Head exam: Present: atraumatic, normocephalic, normal inspection Neck exam: Present: normal inspection, full ROM. Absent: tenderness, meningismus, lymphadenopathy Respiratory exam: Present: normal lung sounds bilaterally. Absent: respiratory distress, wheezes, rales, rhonchi, stridor Cardiovascular Exam: Present: normal rhythm, tachycardia, normal heart sounds. Absent: systolic murmur, diastolic murmur, rubs, gallop, clicks GI/Abdominal exam: Present: soft, tenderness (Mild upper), normal bowel sounds. Absent: distended, guarding, rebound, rigid Back exam: Absent: CVA tenderness (R), CVA tenderness (L) Skin exam: Present: warm, dry, intact, normal color. Absent: rash <Manuel Babb M - Last Filed: 12/10/18 19:54> Vital Signs 12/10/18 12/10/18 12/10/18 15:31 19:30 20:29 Temperature 98 F 98.1 F Pulse Rate 111 H 71 72 Respiratory 18 18 18 Rate Blood Pressure 134/90 112/77 107/62 O2 Sat by Pulse 99 98 98 Oximetry 12/10/18 21:40 Temperature 98.2 F Pulse Rate 76 Respiratory 16 Rate Blood Pressure 110/68 O2 Sat by Pulse 99 Oximetry Medical Decision Making - Lab Data Result diagrams: 12/10/18 17:52 12/10/18 17:52 <Manuel Babb M - Last Filed: 12/10/18 19:54> - Lab Data Result diagrams: 12/10/18 17:52 12/10/18 17:52 <Sandrine Curran L - Last Filed: 12/11/18 00:38> - Medical Decision Making 28-year-old female presented emergency department for nausea vomiting. Patient was hydrated with 2 L of fluid. Patient's labs reveal mild elevated LFTs. Ultrasound was obtained. Patient did feel better after IV fluids and antiemetics. Patient we discharged with antiemetics, Lomotil. (Manuel Babb) - Lab Data Lab Results 12/10/18 12/10/18 12/10/18 Range/Units 17:52 17:52 17:52 WBC 7.9 (3.8-10.6) k/uL RBC 5.25 (3.80-5.40) m/uL Hgb 15.0 (11.4-16.0) gm/dL Hct 45.0 (34.0-46.0) % MCV 85.7 (80.0-100.0) fL MCH 28.5 (25.0-35.0) pg MCHC 33.3 (31.0-37.0) g/dL RDW 12.7 (11.5-15.5) % Plt Count 272 (150-450) k/uL Neutrophils % 58 % Lymphocytes % 29 % Monocytes % 5 % Eosinophils % 3 % Basophils % 1 % Neutrophils # 4.6 (1.3-7.7) k/uL Lymphocytes # 2.3 (1.0-4.8) k/uL Monocytes # 0.4 (0-1.0) k/uL Eosinophils # 0.3 (0-0.7) k/uL Basophils # 0.1 (0-0.2) k/uL Sodium 139 (137-145) mmol/L Potassium 3.5 (3.5-5.1) mmol/L Chloride 111 H (98-107) mmol/L Carbon Dioxide 18 L (22-30) mmol/L Anion Gap 10 mmol/L BUN 12 (7-17) mg/dL Creatinine 0.96 (0.52-1.04) mg/dL Est GFR (CKD-EPI)AfAm >90 (>60 ml/min/1.73 sqM) Est GFR (CKD-EPI)NonAf 80 (>60 ml/min/1.73 sqM) Glucose 90 (74-99) mg/dL Plasma Lactic Acid Javier (0.7-2.0) mmol/L Calcium 9.7 (8.4-10.2) mg/dL Total Bilirubin 0.9 (0.2-1.3) mg/dL AST 99 H (14-36) U/L ALT 189 H (9-52) U/L Alkaline Phosphatase 56 (38-126) U/L Total Protein 7.4 (6.3-8.2) g/dL Albumin 4.2 (3.5-5.0) g/dL Amylase 39 (30-110) U/L Lipase 152 (23-300) U/L Urine Color Dark Brown Urine Appearance Cloudy H (Clear) Urine pH 6.0 (5.0-8.0) Ur Specific Rosalia 1.029 (1.001-1.035) Urine Protein 2+ H (Negative) Urine Glucose (UA) Negative (Negative) Urine Ketones 1+ H (Negative) Urine Blood Large H (Negative) Urine Nitrite Negative (Negative) Urine Bilirubin 1+ H (Negative) Urine Urobilinogen <2.0 (<2.0) mg/dL Ur Leukocyte Esterase Trace H (Negative) Urine RBC >182 H (0-5) /hpf Urine WBC 4 (0-5) /hpf Ur Squamous Epith Cells 3 (0-4) /hpf Urine Mucus Moderate H (None) /hpf Urine HCG, Qual (Not Detectd) Hepatitis A IgM Ab 12/10/18 12/10/18 12/10/18 Range/Units 17:52 17:52 19:22 WBC (3.8-10.6) k/uL RBC (3.80-5.40) m/uL Hgb (11.4-16.0) gm/dL Hct (34.0-46.0) % MCV (80.0-100.0) fL MCH (25.0-35.0) pg MCHC (31.0-37.0) g/dL RDW (11.5-15.5) % Plt Count (150-450) k/uL Neutrophils % % Lymphocytes % % Monocytes % % Eosinophils % % Basophils % % Neutrophils # (1.3-7.7) k/uL Lymphocytes # (1.0-4.8) k/uL Monocytes # (0-1.0) k/uL Eosinophils # (0-0.7) k/uL Basophils # (0-0.2) k/uL Sodium (137-145) mmol/L Potassium (3.5-5.1) mmol/L Chloride (98-107) mmol/L Carbon Dioxide (22-30) mmol/L Anion Gap mmol/L BUN (7-17) mg/dL Creatinine (0.52-1.04) mg/dL Est GFR (CKD-EPI)AfAm (>60 ml/min/1.73 sqM) Est GFR (CKD-EPI)NonAf (>60 ml/min/1.73 sqM) Glucose (74-99) mg/dL Plasma Lactic Acid Javier 1.5 (0.7-2.0) mmol/L Calcium (8.4-10.2) mg/dL Total Bilirubin (0.2-1.3) mg/dL AST (14-36) U/L ALT (9-52) U/L Alkaline Phosphatase (38-126) U/L Total Protein (6.3-8.2) g/dL Albumin (3.5-5.0) g/dL Amylase (30-110) U/L Lipase (23-300) U/L Urine Color Urine Appearance (Clear) Urine pH (5.0-8.0) Ur Specific Rosalia (1.001-1.035) Urine Protein (Negative) Urine Glucose (UA) (Negative) Urine Ketones (Negative) Urine Blood (Negative) Urine Nitrite (Negative) Urine Bilirubin (Negative) Urine Urobilinogen (<2.0) mg/dL Ur Leukocyte Esterase (Negative) Urine RBC (0-5) /hpf Urine WBC (0-5) /hpf Ur Squamous Epith Cells (0-4) /hpf Urine Mucus (None) /hpf Urine HCG, Qual Not Detected (Not Detectd) Hepatitis A IgM Ab NEGATIVE Disposition <Manuel Babb M - Last Filed: 12/10/18 19:54> Is patient prescribed a controlled substance at d/c from ED?: No Time of Disposition: 21:06 <Sandrine Curran - Last Filed: 12/11/18 00:38> Clinical Impression: Nausea vomiting and diarrhea, Dehydration Disposition: HOME SELF-CARE Condition: Stable Instructions: Acute Diarrhea (ED) Additional Instructions: Please return to the Emergency Department if symptoms worsen or any other concerns. Referrals: Sofia Major DO [Primary Care Provider] - 1-2 days Wayne Garcia MD [STAFF PHYSICIAN] - 1-2 days
[2018-12-10 18:25] LABS: Basophils # (A) 0.1 k/uL (0-0.2); Basophils % (A) 1 %; Eosinophils # (A) 0.3 k/uL (0-0.7); Eosinophils % (A) 3 %; Lymphocytes # (A) 2.3 k/uL (1.0-4.8); Lymphocytes % (A) 29 %; MCH 28.5 pg (25.0-35.0); MCHC 33.3 g/dL (31.0-37.0); MCV 85.7 fL (80.0-100.0); Mean Platelet Volume 6.5; Monocytes # (A) 0.4 k/uL (0-1.0); Monocytes % (A) 5 %; Neutrophils # (A) 4.6 k/uL (1.3-7.7); Neutrophils % (A) 58 %; Platelet Count 272 k/uL (150-450); RBC 5.25 m/uL (3.80-5.40); RDW 12.7 % (11.5-15.5); WBC 7.9 k/uL (3.8-10.6)
[2018-12-10 18:34] LABS: Appearance,Urine Cloudy (Clear); Bilirubin,Urine 1+ (Negative); Blood,Urine Large (Negative); Color,Urine Dark Brown; Glucose,Urine (UA) Negative (Negative); Ketones,Urine 1+ (Negative); Leukocyte Esterase,Urine Trace (Negative); Mucus,Urine Moderate /hpf; Nitrite,Urine Negative (Negative); Protein,Urine 2+ (Negative); RBC,Urine >182 /hpf (0-5); Specific Gravity,Urine 1.029 (1.001-1.035); Squamous Epithelial Cell,Urine 3 /hpf (0-4); Urobilinogen,Urine <2.0 mg/dL (<2.0); WBC,Urine 4 /hpf (0-5)
[2018-12-10 18:58] LABS: ALT 189 U/L (9-52); AST 99 U/L (14-36); Albumin 4.2 g/dL (3.5-5.0); Alkaline Phosphatase 56 U/L (38-126); Amylase 39 U/L (30-110); Anion Gap 10 mmol/L; Blood Urea Nitrogen 12 mg/dL (7-17); Calcium 9.7 mg/dL (8.4-10.2); Carbon Dioxide 18 mmol/L (22-30); Chloride 111 mmol/L (98-107); Glucose 90 mg/dL (74-99); Lipase 152 U/L (23-300); Potassium 3.5 mmol/L (3.5-5.1); Sodium 139 mmol/L (137-145); Total Bilirubin 0.9 mg/dL (0.2-1.3); Total Protein 7.4 g/dL (6.3-8.2)
[2018-12-10] MEDS ORDERED: DIPHENOX-ATROP STARTER PACK 8 TAB BTL PO STA (19:55)
[2018-12-10 20:08] LABS: Hepatitis A AB IgM Index 0.01; Hepatitis A Antibody IgM NEGATIVE
--- NOTE | 2018-12-10 20:15 | US ---
EXAMINATION TYPE: US abdomen limited DATE OF EXAM: 12/10/2018 COMPARISON: NONE CLINICAL HISTORY: Pain. Pain cholecystectomy. EXAM MEASUREMENTS: Liver Length: 17.5 cm Gallbladder Wall: Surgically absent cm CBD: 0.8 cm Right Kidney: 11.3 x 4.5 x 4.3 cm Pancreas: Obscured by bowel gas Liver: Increased attenuation Gallbladder: Surgically absent Evidence for sonographic Lyle's sign: No CBD: wnl Right Kidney: wnl IMPRESSION: Cholecystectomy. No dilated ducts. No free fluid.
[2018-12-10 21:40] VITALS: BP 110/68; PULSE 76; RESP 16; TEMP 98.2
[2018-12-11 05:47] LABS: Hepatitis B Core IgM Non-Reactive (Non-Reactive)
== END 2018-12-10 21:40 | disposition home or self-care (01) ==
LOC: EC 14:58
DX: E86.0 Dehydration (principal); R11.2 Nausea with vomiting, unspecified; R19.7 Diarrhea, unspecified; R79.89 Other specified abnormal findings of blood chemistry; R10.84 Generalized abdominal pain; R25.2 Cramp and spasm; K58.9 Irritable bowel syndrome, unspecified; Z90.49 Acquired absence of other specified parts of digestive tract; Z79.899 Other long term (current) drug therapy
CPT/HCPCS: 36415; 80053; 80074; 82150; 83605; 83690; 85025; 81001; 81025; 87040; 87086; 76705; 99284; 96374; 96375 ×3; 96361; J1200; J2765; J1885; C9113

== ENCOUNTER 2020-02-02 11:05 | Emergency (ER) | payer BC, MEDICAID, OTHER ==
[2020-02-02 11:14] VITALS: TEMP 98.2
[2020-02-02] MEDS ORDERED: MORPHINE SULFATE 4 MG/ML SYRINGE IV STA (11:35)
[2020-02-02] MEDS ORDERED: IOPAMIDOL CONTRAST (ORAL USE) VIAL PO PRN (11:35)
[2020-02-02] MEDS ORDERED: PANTOPRAZOLE 40 MG/10 ML VIAL IVP STA (11:35)
[2020-02-02] MEDS ORDERED: ONDANSETRON 4 MG/2 ML VIAL IVP STA (11:35)
[2020-02-02] MEDS ORDERED: SODIUM CHLORIDE 0.9% 1,000 ML IV STA ×2 (11:35)
--- NOTE | 2020-02-02 11:46 | ED ---
Abdominal Pain HPI - General Chief Complaint: Abdominal Pain Stated Complaint: 17 days post op surgery/poss bowel obstruction Time Seen by Provider: 02/02/20 11:22 Source: patient, RN notes reviewed, old records reviewed Mode of arrival: ambulatory Limitations: no limitations - History of Present Illness Initial Comments: Patient is a 29-year-old female who presents emergency Department today with left-sided abdominal pain, and unable to have a bowel movement for the past 11 days. Patient reports that she had gastric sleeve surgery performed accurately 18 days ago in [place]. Patient reports that she did this for cost and insurance reasons. Patient states that she has advanced to a pured diet. She has had no vomiting. She does report some occasional nausea. Patient states she's tried to use MiraLAX normal bowel movements but is unsuccessful. She reports that she was at work today and started to double over due to pain and was brought to the ER by her coworker. - Related Data Home Medications Medication Instructions Recorded Confirmed Calcium Patch 1 patch TRANSDERM DAILY 02/02/20 02/02/20 Iron Patch 1 patch TRANSDERM DAILY 02/02/20 02/02/20 Multivitamin Patch 1 patch TRANSDERM DAILY 02/02/20 02/02/20 Vitmain B-12 Patch 1 patch TRANSDERM DAILY 02/02/20 02/02/20 Allergies Allergy/AdvReac Type Severity Reaction Status Date / Time No Known Allergies Allergy Verified 02/02/20 12:41 Review of Systems ROS Statement: Those systems with pertinent positive or pertinent negative responses have been documented in the HPI. ROS Other: All systems not noted in ROS Statement are negative. Past Medical History Past Medical History: Asthma, GERD/Reflux, Osteoarthritis (OA) Additional Past Medical History / Comment(s): Chronic back pain (L3-5 ruptured discs), IBS, arthritis in feet, History of Any Multi-Drug Resistant Organisms: None Reported Past Surgical History: Bariatric Surgery, Cholecystectomy Additional Past Surgical History / Comment(s): oral surgery gastric sleeve Past Anesthesia/Blood Transfusion Reactions: No Reported Reaction, Family Hisory of Malignant Hyperthermia Additional Past Anesthesia/Blood Transfusion Reaction / Comment(s): brother becomes violent with anesthesia Past Psychological History: Anxiety Smoking Status: Never smoker Past Alcohol Use History: Rare Past Drug Use History: None Reported - Past Family History Mother Family Medical History: Neurologic Disorder Additional Family Medical History / Comment(s): epilepsy, Father Family Medical History: Cancer, Deep Vein Thrombosis (DVT) Additional Family Medical History / Comment(s): . General Exam - General Exam Comments Initial Comments: Alert and oriented 29-year-old female. No distress. Limitations: no limitations General appearance: alert, in no apparent distress Head exam: Present: atraumatic, normocephalic, normal inspection Eye exam: Present: normal appearance, PERRL, EOMI. Absent: scleral icterus, conjunctival injection, periorbital swelling ENT exam: Present: normal exam, mucous membranes moist Neck exam: Present: normal inspection. Absent: tenderness, meningismus, lymphadenopathy Respiratory exam: Present: normal lung sounds bilaterally. Absent: respiratory distress, wheezes, rales, rhonchi, stridor Cardiovascular Exam: Present: regular rate, normal rhythm, normal heart sounds. Absent: systolic murmur, diastolic murmur, rubs, gallop, clicks GI/Abdominal exam: Present: soft, tenderness (Left lower quadrant abdominal tenderness), normal bowel sounds. Absent: distended, guarding, rebound, rigid Extremities exam: Present: normal inspection, full ROM, normal capillary refill. Absent: tenderness, pedal edema, joint swelling, calf tenderness Back exam: Present: normal inspection Neurological exam: Present: alert, oriented X3, CN II-XII intact Psychiatric exam: Present: normal affect, normal mood Skin exam: Present: warm, dry, intact, normal color. Absent: rash Course Vital Signs 02/02/20 02/02/20 02/02/20 11:11 11:14 13:16 Temperature 98.2 F Pulse Rate 90 83 Respiratory 16 20 16 Rate Blood Pressure 153/83 115/62 O2 Sat by Pulse 100 97 Oximetry Medical Decision Making - Medical Decision Making 29-year-old female presents emergency department today from left abdominal pain. Patient is 18 days post gastric sleeve surgery. She isn't vomiting. She has some left lower quadrant tenderness. Chest and she's not had a bowel movement in 11 days. She's been a menstrual period diet. Patient at this time has normal lab work. Due to recent surgery and lack of bowel movement CTs were com pleted. She does report that she is still passing gas. CT shows no signs pneumoperitoneum. There is a right cyst on the ovary and further follow-up. He for ultrasound. I did discuss this with the Patient. Patient's given theravac Back and enema did have small bowel movement after. I discussed continuing MiraLAX and discussing follow-up with her primary care Dr. . Patient advised she developed a fever or worsening pain or symptoms she can return to the ER for further evaluation. - Lab Data Result diagrams: 02/02/20 11:54 02/02/20 11:54 Lab Results 02/02/20 02/02/20 02/02/20 Range/Units 11:54 11:54 11:54 WBC 7.0 (3.8-10.6) k/uL RBC 5.13 (3.80-5.40) m/uL Hgb 15.0 (11.4-16.0) gm/dL Hct 45.1 (34.0-46.0) % MCV 87.9 (80.0-100.0) fL MCH 29.2 (25.0-35.0) pg MCHC 33.2 (31.0-37.0) g/dL RDW 12.7 (11.5-15.5) % Plt Count 214 (150-450) k/uL Neutrophils % 68 % Lymphocytes % 21 % Monocytes % 6 % Eosinophils % 2 % Basophils % 1 % Neutrophils # 4.8 (1.3-7.7) k/uL Lymphocytes # 1.5 (1.0-4.8) k/uL Monocytes # 0.4 (0-1.0) k/uL Eosinophils # 0.1 (0-0.7) k/uL Basophils # 0.1 (0-0.2) k/uL Sodium 141 (137-145) mmol/L Potassium 3.9 (3.5-5.1) mmol/L Chloride 107 (98-107) mmol/L Carbon Dioxide 20 L (22-30) mmol/L Anion Gap 14 mmol/L BUN 11 (7-17) mg/dL Creatinine 0.68 (0.52-1.04) mg/dL Est GFR (CKD-EPI)AfAm >90 (>60 ml/min/1.73 sqM) Est GFR (CKD-EPI)NonAf >90 (>60 ml/min/1.73 sqM) Glucose 100 H (74-99) mg/dL Calcium 9.6 (8.4-10.2) mg/dL Total Bilirubin 0.8 (0.2-1.3) mg/dL AST 32 (14-36) U/L ALT 38 H (4-34) U/L Alkaline Phosphatase 66 (38-126) U/L Total Protein 7.7 (6.3-8.2) g/dL Albumin 4.7 (3.5-5.0) g/dL Amylase 40 (30-110) U/L Lipase 323 H (23-300) U/L Urine Color Yellow Urine Appearance Cloudy H (Clear) Urine pH 7.5 (5.0-8.0) Ur Specific [place] 1.028 (1.001-1.035) Urine Protein 1+ H (Negative) Urine Glucose (UA) Negative (Negative) Urine Ketones 4+ H (Negative) Urine Blood Negative (Negative) Urine Nitrite Negative (Negative) Urine Bilirubin Negative (Negative) Urine Urobilinogen 8.0 (<2.0) mg/dL Ur Leukocyte Esterase Small H (Negative) Urine WBC 4 (0-5) /hpf Ur Squamous Epith Cells 10 H (0-4) /hpf Urine Mucus Few H (None) /hpf - Radiology Data Radiology results: report reviewed CT shows no pneumoperitoneum and the Patient after gastric sleeve. Had stranding in the left rectus abdominal muscle and subcutaneous tissues of the left mid abdomen. Likely inflammatory from recent surgery. Hepatic steatosis. Cystic right adnexal lesion may represent a physiologic cyst however nonemergent follow-up with ultrasound Is recommended. Prominent size of the spleen approaching criteria for splint or megaly. Disposition Clinical Impression: Constipation, Right ovarian cyst, S/P gastric surgery Disposition: HOME SELF-CARE Condition: Good Instructions (If sedation given, give patient instructions): Constipation (ED) Additional Instructions: Continue to increase water intake and clear liquids. Walk frequently. Patient can also continue MiraLAX to promote bowel movements. Follow-up with PCP. Return to the ED if there is any fevers or other alarming signs or symptoms that occur. Is patient prescribed a controlled substance at d/c from ED?: No Referrals: Sofia Major DO [Primary Care Provider] - 1-2 days Time of Disposition: 13:52
[2020-02-02 12:14] LABS: Basophils # (A) 0.1 k/uL (0-0.2); Basophils % (A) 1 %; Eosinophils # (A) 0.1 k/uL (0-0.7); Eosinophils % (A) 2 %; HCT 45.1 % (34.0-46.0); Lymphocytes # (A) 1.5 k/uL (1.0-4.8); Lymphocytes % (A) 21 %; MCH 29.2 pg (25.0-35.0); MCHC 33.2 g/dL (31.0-37.0); MCV 87.9 fL (80.0-100.0); Mean Platelet Volume 7.9; Monocytes # (A) 0.4 k/uL (0-1.0); Monocytes % (A) 6 %; Neutrophils # (A) 4.8 k/uL (1.3-7.7); Neutrophils % (A) 68 %; Platelet Count 214 k/uL (150-450); RBC 5.13 m/uL (3.80-5.40); RDW 12.7 % (11.5-15.5)
[2020-02-02 12:19] LABS: Appearance,Urine Cloudy (Clear); Bilirubin,Urine Negative (Negative); Blood,Urine Negative (Negative); Color,Urine Yellow; Glucose,Urine (UA) Negative (Negative); Ketones,Urine 4+ (Negative); Leukocyte Esterase,Urine Small (Negative); Mucus,Urine Few /hpf; Nitrite,Urine Negative (Negative); PH, Urine 7.5 (5.0-8.0); Protein,Urine 1+ (Negative); Specific Gravity,Urine 1.028 (1.001-1.035); Squamous Epithelial Cell,Urine 10 /hpf (0-4); WBC,Urine 4 /hpf (0-5)
[2020-02-02 12:30] LABS: ALT 38 U/L (4-34); AST 32 U/L (14-36); African American GFR (CKD) >90 (>60 ml/min/1.73 sqM); Albumin 4.7 g/dL (3.5-5.0); Alkaline Phosphatase 66 U/L (38-126); Amylase 40 U/L (30-110); Anion Gap 14 mmol/L; Blood Urea Nitrogen 11 mg/dL (7-17); Calcium 9.6 mg/dL (8.4-10.2); Carbon Dioxide 20 mmol/L (22-30); Chloride 107 mmol/L (98-107); Glucose 100 mg/dL (74-99); Non-African American GFR(CKD) >90 (>60 ml/min/1.73 sqM); Potassium 3.9 mmol/L (3.5-5.1); Sodium 141 mmol/L (137-145); Total Bilirubin 0.8 mg/dL (0.2-1.3); Total Protein 7.7 g/dL (6.3-8.2)
--- NOTE | 2020-02-02 12:56 | CT ---
EXAMINATION TYPE: CT abdomen pelvis w con DATE OF EXAM: 02/02/2020 HISTORY: LLQ pain CT DLP: 2159.7mGycm Automated Exposure Control for Dose Reduction was Utilized. CONTRAST: CT scan of the abdomen and pelvis is performed with IV Contrast, patient injected with 100 mL of Isov ue 300. COMPARISON: 10/19/2018 FINDINGS: LUNG BASES: No significant abnormality is appreciated. LIVER/GB: Hepatic parenchyma is diffusely hypoattenuated in comparison to that of the spleen, most co mmonly seen in hepatic steatosis. This finding limits evaluation for hepatic masses. Probable more fo isaac fatty infiltration in the fissure for the falciform ligament. No intrahepatic biliary ductal dila tation. Gallbladder is surgically absent. PANCREAS: No significant abnormality is seen. SPLEEN: Prominent size measuring 13.0 cm in craniocaudal dimension. Small splenule seen adjacent to t he [place] spleen. ADRENALS: No significant abnormality is seen. KIDNEYS: Too small to accurately characterize left lower pole renal lesion is subcentimeter on delaye d imaging only. No hydronephrosis of either kidney. BOWEL: Partial gastrectomy has been performed with recent gastric sleeve. UTERUS/ADNEXA: Fluid attenuated right adnexal 3.8 cm cystic lesion is seen. Pelvic ultrasound is shoshana mmended on a nonemergent basis for further characterization. Scant amount of free fluid in the mid level game designer ior cul-de-sac is likely physiologic in nature LYMPH NODES: No greater than 1cm abdominal or pelvic lymph nodes are appreciated. OSSEOUS STRUCTURES: Mild levoscoliosis of the lumbar spine. OTHER: There is patent stranding in the left mid abdominal subcutaneous tissues just over the rectus abdominous muscle, possibly postsurgical. No pneumoperitoneum. IMPRESSION: 1. No pneumoperitoneum in this patient status post recent gastric sleeve. There is fat stranding jessica g the left rectus abdominal muscle and subcutaneous tissues of the left mid abdomen, likely inflammat ory from the recent surgery. 2. Hepatic steatosis. 3. Cystic right adnexal lesion that may represent a physiologic cyst however nonemergent follow-up fu ll characterization with pelvic ultrasound is recommended. 4. Prominent size of the spleen approaching criteria for splenomegaly.
[2020-02-02] MEDS ORDERED: DOCUSATE 283 MG/5 ML ENEMA RECTAL STA (13:01)
[2020-02-02 13:17] VITALS: BP 115/62; PULSE 83; RESP 16
== END 2020-02-02 14:47 | disposition home or self-care (01) ==
LOC: EC 11:05
DX: K59.00 Constipation, unspecified (principal); N83.201 Unspecified ovarian cyst, right side; R11.0 Nausea; Z87.19 Personal history of other diseases of the digestive system; Z98.84 Bariatric surgery status; Z90.49 Acquired absence of other specified parts of digestive tract
CPT/HCPCS: 99284; 96374; 96375 ×2; 96361 ×3; 36415; 80053; 82150; 83690; 85025; 81001; 74177; J2270; J2405; C9113; Q9967

== ENCOUNTER → 2020-12-08 | Outpatient (CLI) | payer BC | END | disposition home or self-care (01) | LOC: LABWHC1 07:00 | PROVIDERS: ATTEND Obstetrics & Gynecology | DX: Z36.9 Encounter for antenatal screening, unspecified (principal) | CPT/HCPCS: 36415; 82950 ==

== ENCOUNTER 2021-01-07 08:47 | Emergency (ER) | payer BC, OTHER ==
[2021-01-07 09:01] VITALS: BP 135/87; PULSE 88; RESP 18; TEMP 98.8
[2021-01-07 09:40] LABS: Amorphous Sediment,Urine Rare /hpf; Appearance,Urine Turbid (Clear); Bacteria,Urine Occasional /hpf; Bilirubin,Urine Negative (Negative); Blood,Urine Moderate (Negative); Color,Urine Yellow; Glucose,Urine (UA) Negative (Negative); Ketones,Urine Negative (Negative); Leukocyte Esterase,Urine Trace (Negative); Mucus,Urine Rare /hpf; Nitrite,Urine Negative (Negative); PH, Urine 7.5 (5.0-8.0); Protein,Urine Negative (Negative); RBC,Urine 25 /hpf (0-5); Specific Gravity,Urine 1.015 (1.001-1.035); Squamous Epithelial Cell,Urine 4 /hpf (0-4); Urobilinogen,Urine <2.0 mg/dL (<2.0); WBC,Urine 1 /hpf (0-5)
[2021-01-07] MEDS ORDERED: MORPHINE SULFATE 2 MG/ML SYRINGE IVP STA (09:55)
[2021-01-07] MEDS ORDERED: ACETAMINOPHEN TAB 500 MG TAB PO STA (10:35)
[2021-01-07 10:37] LABS: Basophils % (A) 0 %; Eosinophils % (A) 0 %; HCT 36.8 % (34.0-46.0); Lymphocytes # (A) 1.5 k/uL (1.0-4.8); Lymphocytes % (A) 18 %; MCH 31.4 pg (25.0-35.0); MCHC 35.2 g/dL (31.0-37.0); MCV 89.3 fL (80.0-100.0); Mean Platelet Volume 7.2; Monocytes # (A) 0.5 k/uL (0-1.0); Monocytes % (A) 6 %; Neutrophils # (A) 6.1 k/uL (1.3-7.7); Neutrophils % (A) 73 %; Platelet Count 180 k/uL (150-450); RBC 4.12 m/uL (3.80-5.40); WBC 8.3 k/uL (3.8-10.6)
[2021-01-07 10:48] LABS: ALT 9 U/L (4-34); AST 16 U/L (14-36); African American GFR (CKD) >90 (>60 ml/min/1.73 sqM); Albumin 3.5 g/dL (3.5-5.0); Alkaline Phosphatase 64 U/L (38-126); Anion Gap 9 mmol/L; Blood Urea Nitrogen 7 mg/dL (7-17); Calcium 9.3 mg/dL (8.4-10.2); Carbon Dioxide 22 mmol/L (22-30); Chloride 105 mmol/L (98-107); Glucose 72 mg/dL (74-99); Non-African American GFR(CKD) >90 (>60 ml/min/1.73 sqM); Potassium 3.9 mmol/L (3.5-5.1); Sodium 136 mmol/L (137-145); Total Bilirubin 0.4 mg/dL (0.2-1.3); Total Protein 6.3 g/dL (6.3-8.2)
--- NOTE | 2021-01-07 10:58 | US ---
EXAMINATION TYPE: US renals and bladder DATE OF EXAM: 01/07/2021 COMPARISON: CLINICAL HISTORY: Kidney stone. Right flank pain. 31 weeks . Patient voided before exam. EXAM MEASUREMENTS: Right Kidney: 12.9 x 6.6 x 6.2 cm Left Kidney: 12.1 x 5.6 x 5.7 cm Right Kidney: Moderate hydronephrosis visualized. Lower pole echogenic focus= 1.2 x 1.2 cm Left Kidney: No hydronephrosis or masses seen Bladder: Not seen due to recently bladder void. Bilateral Jets not seen There is no evidence for hydronephrosis at this point in time. No nephrolithiasis is seen. No geraldine s are identified. The urinary bladder is anechoic. Bilateral ureteral jets are seen. IMPRESSION: Moderate right-sided hydronephrosis.
--- NOTE | 2021-01-07 10:59 | US ---
EXAMINATION TYPE: US OB >= 14 wk fetus DATE OF EXAM: 01/07/2021 COMPARISON: None CLINICAL HISTORY: Flank pain Right flank pain. No spotting. TECHNIQUE: Transabdominal (TA) GESTATIONAL AGE / DATING Physician Established: (31 weeks/1 days) EDC: 03/10/2021 Dates by Current Scan: (33 weeks/1 days) EDC: 02/24/2021 Beta HCG (if available): Not available at this time SURVEY IUP: Single PLACENTA: Anterior PREVIA: No Previa BURCE: 15.1 cm Normal CERVICAL LENGTH (transabdominal: norm > 3.0cm): 3.2 cm BIOMETRY PRESENTATION: Vertex BPD: 8.8 cm 35 weeks / 5 days HC: 32.1 cm 36 weeks / 1 days AC: 27.7 cm 31 weeks / 5 days FL: 6.1 cm 31 weeks / 4 days ESTIMATED WEIGHT IN GRAMS: 1978 grams ESTIMATED WEIGHT IN LBS/OZ: 4 lbs. 6 oz. WEIGHT PERCENTAGE BASED ON ESTABLISHED DATES: 81.0% HC/AC: 1.2 Abnormal FL/AC: 21.9 Normal HEART RATE: 143 bpm RHYTHM: Normal IMPRESSION: Single live IUP measuring 33 weeks 1 day on today's exam.
--- NOTE | 2021-01-07 11:16 | ED ---
General Adult HPI - General Chief complaint: Urogenital Stated complaint: Poss UTI, 31 wks Time Seen by Provider: 01/07/21 09:00 Source: patient, RN notes reviewed, old records reviewed Mode of arrival: ambulatory Limitations: no limitations - History of Present Illness Initial comments: This is a 30-year-old female who is 31 weeks . Patient comes in today because she's been having right-sided flank pain and CVA pain. Patient states she's also been having frequent urinations. Patient denies any dysuria. Patient denies any fever. Patient denies any abdominal pain. Patient denies any vaginal discharge or bleeding. Patient states she's never had a kidney stone or urinary tract infection before she is not sure at this is per patient states this morning the pain got so bad that she was having dry heaves. - Related Data Home Medications Medication Instructions Recorded Confirmed Calcium Patch 1 patch TRANSDERM DAILY 02/02/20 01/07/21 Iron Patch 1 patch TRANSDERM DAILY 02/02/20 01/07/21 Multivitamin Patch 1 patch TRANSDERM DAILY 02/02/20 01/07/21 Vitmain B-12 Patch 1 patch TRANSDERM DAILY 02/02/20 01/07/21 Allergies Allergy/AdvReac Type Severity Reaction Status Date / Time No Known Allergies Allergy Verified 01/07/21 09:54 Review of Systems ROS Statement: Those systems with pertinent positive or pertinent negative responses have been documented in the HPI. ROS Other: All systems not noted in ROS Statement are negative. Past Medical History Past Medical History: Asthma, GERD/Reflux, Osteoarthritis (OA) Additional Past Medical History / Comment(s): Chronic back pain (L3-5 ruptured discs), IBS, arthritis in feet, History of Any Multi-Drug Resistant Organisms: None Reported Past Surgical History: Bariatric Surgery, Cholecystectomy Additional Past Surgical History / Comment(s): oral surgery gastric sleeve Past Anesthesia/Blood Transfusion Reactions: No Reported Reaction, Family Hisory of Malignant Hyperthermia Additional Past Anesthesia/Blood Transfusion Reaction / Comment(s): brother becomes violent with anesthesia Past Psychological History: Anxiety Smoking Status: Never smoker Past Alcohol Use History: Rare Past Drug Use History: None Reported - Past Family History Mother Family Medical History: Neurologic Disorder Additional Family Medical History / Comment(s): epilepsy, Father Family Medical History: Cancer, Deep Vein Thrombosis (DVT) Additional Family Medical History / Comment(s): . General Exam - General Exam Comments Initial Comments: GENERAL: Patient is well-developed and well-nourished. Patient is nontoxic and well- hydrated and is in Moderate distress. ENT: Neck is soft and supple. No significant lymphadenopathy is noted. Oropharynx is clear. Moist mucous membranes. Neck has full range of motion without eliciting any pain. EYES: The sclera were anicteric and conjunctiva were pink and moist. Extraocular movements were intact and pupils were equal round and reactive to light. Eyelids were unremarkable. PULMONARY: Unlabored respirations. Good breath sounds bilaterally. No audible rales rhonchi or wheezing was noted. CARDIOVASCULAR: There is a regular rate and rhythm without any murmurs gallops or rubs. ABDOMEN: Soft and nontender with normal bowel sounds. SKIN: Skin is clear with no lesions or rashes and otherwise unremarkable. NEUROLOGIC: Patient is alert and oriented x3. Cranial nerves II through XII are grossly intact. Motor and sensory are also intact. Normal speech, volume and content. Symmetrical smile. MUSCULOSKELETAL: Normal extremities with adequate strength and full range of motion. Mild CVA t enderness LYMPHATICS: No significant lymphadenopathy is noted PSYCHIATRIC: Normal psychiatric evaluation. Limitations: no limitations Course Vital Signs 01/07/21 08:54 Temperature 98.8 F Pulse Rate 88 Respiratory 18 Rate Blood Pressure 135/87 O2 Sat by Pulse 100 Oximetry Medical Decision Making - Medical Decision Making Ultrasound shows a 33 week viable . ALSO SHOWED RIGHT-SIDED HYDRONEPHROSIS PATIENT WILL FOLLOW-UP WITH UROLOGY AND SHIP PILOT DISPATCHER. - Lab Data Result diagrams: 01/07/21 10:35 01/07/21 10:35 Lab Results 01/07/21 01/07/21 01/07/21 Range/Units 09:23 10:35 10:35 WBC 8.3 (3.8-10.6) k/uL RBC 4.12 (3.80-5.40) m/uL Hgb 13.0 (11.4-16.0) gm/dL Hct 36.8 (34.0-46.0) % MCV 89.3 (80.0-100.0) fL MCH 31.4 (25.0-35.0) pg MCHC 35.2 (31.0-37.0) g/dL RDW 13.0 (11.5-15.5) % Plt Count 180 (150-450) k/uL MPV 7.2 Neutrophils % 73 % Lymphocytes % 18 % Monocytes % 6 % Eosinophils % 0 % Basophils % 0 % Neutrophils # 6.1 (1.3-7.7) k/uL Lymphocytes # 1.5 (1.0-4.8) k/uL Monocytes # 0.5 (0-1.0) k/uL Eosinophils # 0.0 (0-0.7) k/uL Basophils # 0.0 (0-0.2) k/uL Sodium 136 L (137-145) mmol/L Potassium 3.9 (3.5-5.1) mmol/L Chloride 105 (98-107) mmol/L Carbon Dioxide 22 (22-30) mmol/L Anion Gap 9 mmol/L BUN 7 (7-17) mg/dL Creatinine 0.59 (0.52-1.04) mg/dL Est GFR (CKD-EPI)AfAm >90 (>60 ml/min/1.73 sqM) Est GFR (CKD-EPI)NonAf >90 (>60 ml/min/1.73 sqM) Glucose 72 L (74-99) mg/dL Calcium 9.3 (8.4-10.2) mg/dL Total Bilirubin 0.4 (0.2-1.3) mg/dL AST 16 (14-36) U/L ALT 9 (4-34) U/L Alkaline Phosphatase 64 (38-126) U/L Total Protein 6.3 (6.3-8.2) g/dL Albumin 3.5 (3.5-5.0) g/dL Urine Color Yellow Urine Appearance Turbid H (Clear) Urine pH 7.5 (5.0-8.0) Ur Specific [place] 1.015 (1.001-1.035) Urine Protein Negative (Negative) Urine Glucose (UA) Negative (Negative) Urine Ketones Negative (Negative) Urine Blood Moderate H (Negative) Urine Nitrite Negative (Negative) Urine Bilirubin Negative (Negative) Urine Urobilinogen <2.0 (<2.0) mg/dL Ur Leukocyte Esterase Trace H (Negative) Urine RBC 25 H (0-5) /hpf Urine WBC 1 (0-5) /hpf Ur Squamous Epith Cells 4 (0-4) /hpf Amorphous Sediment Rare H (None) /hpf Urine Bacteria Occasional H (None) /hpf Urine Mucus Rare H (None) /hpf Disposition Clinical Impression: Hydronephrosis, Kidney stone Disposition: HOME SELF-CARE Instructions (If sedation given, give patient instructions): Kidney Stones (ED), How to Strain Your Urine (ED) Is patient prescribed a controlled substance at d/c from ED?: No Referrals: Alfie Sharma MD [STAFF PHYSICIAN] - 1-2 days Jenna Guidry MD [STAFF PHYSICIAN] - 1-2 days
== END 2021-01-07 11:37 | disposition home or self-care (01) ==
LOC: EC 08:47
DX: O99.891 Other specified diseases and conditions complicating pregnancy (principal); N13.2 Hydronephrosis with renal and ureteral calculous obstruction; Z3A.33 33 weeks gestation of pregnancy; Z90.49 Acquired absence of other specified parts of digestive tract
CPT/HCPCS: 36415; 76770; 76805; 80053; 81001; 85025; 99284

== ENCOUNTER 2021-01-08 19:13 | Inpatient (IN) | payer BC, OTHER ==
[2021-01-08] MEDS ORDERED: ACETAMINOPHEN TAB 500 MG TAB PO STA (19:30)
[2021-01-08] MEDS ORDERED: diphenhydrAMINE 50 MG/ML 1 ML VIAL IVP STA (19:31)
[2021-01-08] MEDS ORDERED: METOCLOPRAMIDE 5 MG/ML 2 ML VIAL IVP STA (19:31)
--- NOTE | 2021-01-08 19:43 | ED ---
Nausea/Vomiting/Diarrhea HPI - General Chief complaint: Nausea/Vomiting/Diarrhea Stated complaint: 31 wk preg/kidney stone Time Seen by Provider: 01/08/21 19:22 Source: patient Mode of arrival: ambulatory Limitations: no limitations - History of Present Illness Initial comments: 30 year-old female patient who is 31 weeks presents to the emergency department for evaluation of fever, body aches, and chills. States that she was here yesterday and diagnosed with a kidney stone with right sided hydronephrosis. She was discharged home. State today she has been feeling quite poorly. Reports nausea and vomiting throughout the day. States she has g eneralized body aches and has not been able to get warm. She is also reporting a headache. She has been taking tylenol throughout the day with last dose at 1:40pm. Denies any significant cough, congestion, sore throat, or nasal congestion. States she is having right lower pelvic pain. Denies any hematuria or dysuria. States she did have frequency yesterday. Patient denies any recent rash, shortness of breath, chest pain, diarrhea, constipation, back pain, numbness, tingling, dizziness, weakness, visual changes, or any other complaints. - Related Data Home Medications Medication Instructions Recorded Confirmed Iron Patch 1 patch TRANSDERM DAILY 02/02/20 01/08/21 Multivitamin Patch 1 patch TRANSDERM DAILY 02/02/20 01/08/21 Vitmain B-12 Patch 1 patch TRANSDERM DAILY 02/02/20 01/08/21 Acetaminophen Tab [Tylenol Tab] 500 - 1,000 mg PO Q6H PRN 01/08/21 01/08/21 Doxylamine Succinate [Unisom] 25 mg PO HS 01/08/21 01/08/21 Vitamin D Patch 1 patch TRANSDERM DAILY 01/08/21 01/08/21 Allergies Allergy/AdvReac Type Severity Reaction Status Date / Time No Known Allergies Allergy Verified 01/08/21 21:15 Review of Systems ROS Statement: Those systems with pertinent positive or pertinent negative responses have been documented in the HPI. ROS Other: All systems not noted in ROS Statement are negative. Past Medical History Past Medical History: Asthma, GERD/Reflux, Osteoarthritis (OA) Additional Past Medical History / Comment(s): Chronic back pain (L3-5 ruptured discs), IBS, arthritis in feet, kidney stones History of Any Multi-Drug Resistant Organisms: None Reported Past Surgical History: Bariatric Surgery, Cholecystectomy Additional Past Surgical History / Comment(s): oral surgery gastric sleeve Past Anesthesia/Blood Transfusion Reactions: No Reported Reaction, Family Hisory of Malignant Hyperthermia Additional Past Anesthesia/Blood Transfusion Reaction / Comment(s): brother becomes violent with anesthesia Past Psychological History: Anxiety Smoking Status: Never smoker Past Alcohol Use History: Rare Past Drug Use History: None Reported - Past Family History Mother Family Medical History: Neurologic Disorder Additional Family Medical History / Comment(s): epilepsy, Father Family Medical History: Cancer, Deep Vein Thrombosis (DVT) Additional Family Medical History / Comment(s): . General Exam Limitations: no limitations General appearance: alert, in no apparent distress, other (This is a well- developed, well-nourished adult female patient in no acute distress. Vital signs upon presentation are temperature 101.1F oral, pulse 152, respirations 20, blood pressure 114/69, pulse ox 96% on room air.) Eye exam: Present: normal appearance, PERRL, EOMI. Absent: scleral icterus, conjunctival injection, periorbital swelling ENT exam: Present: normal exam, normal oropharynx, mucous membranes moist Respiratory exam: Present: normal lung sounds bilaterally. Absent: respiratory distress, wheezes, rales, rhonchi, stridor Cardiovascular Exam: Present: regular rate, normal rhythm, normal heart sounds. Absent: systolic murmur, diastolic murmur, rubs, gallop, clicks GI/Abdominal exam: Present: soft, normal bowel sounds. Absent: distended, tenderness, guarding, rebound, rigid Back exam: Present: normal inspection, CVA tenderness (R). Absent: CVA tenderness (L) Neurological exam: Present: alert, oriented X3, CN II-XII intact Psychiatric exam: Present: normal affect, normal mood Skin exam: Present: warm, dry, intact, normal color. Absent: rash Course Vital Signs 01/08/21 01/08/21 01/08/21 19:18 19:30 20:06 Temperature 99.9 F H 101.1 F H Pulse Rate 152 H 120 H Respiratory 20 Rate Blood Pressure 114/69 O2 Sat by Pulse 96 Oximetry 01/08/21 21:09 Temperature 102.1 F H Pulse Rate 114 H Respiratory 16 Rate Blood Pressure 94/50 O2 Sat by Pulse 97 Oximetry Medical Decision Making - Medical Decision Making 30-year-old female patient presents to the emergency department today for evaluation of fever, body aches, chills. Patient has been having right flank and right pelvic pain was diagnosed with a kidney stone yesterday after having an ultrasound showing hydronephrosis on the right side. Labs reviewed and did reveal elevated white blood cell count of 13.9, neutrophils 12.6., Sodium 132, potassium 3.4. BUN/creatinine are normal. Urinalysis shows a cloudy appearance with 1+ protein, 4+ ketones, moderate leukocyte esterase, 36 white blood cells, 9 squamous epithelial cells, rare bacteria, occasional mucous. She tested negative for COVID-19 and influenza. Patient's symptoms and findings are consistent with pyelonephritis. I did discuss the case with on-call STAND UP COMEDIAN Dr. Mauricio who recommends admission to the Labor and Delivery unit. Orders for lactated ringers and NSTs every shift. She also wanted patient to have ofirmev. I discussed findings and plan with the patient. She is agreeable with admission. Case discussed with my attending Dr. Lou. - Lab Data Result diagrams: 01/08/21 19:45 01/08/21 19:45 Lab Results 01/08/21 01/08/21 01/08/21 Range/Units 19:30 19:45 19:45 WBC 13.9 H (3.8-10.6) k/uL RBC 4.22 (3.80-5.40) m/uL Hgb 12.9 (11.4-16.0) gm/dL Hct 37.9 (34.0-46.0) % MCV 89.7 (80.0-100.0) fL MCH 30.5 (25.0-35.0) pg MCHC 34.0 (31.0-37.0) g/dL RDW 12.5 (11.5-15.5) % Plt Count 170 (150-450) k/uL MPV 7.2 Neutrophils % 91 % Lymphocytes % 3 % Monocytes % 5 % Eosinophils % 0 % Basophils % 0 % Neutrophils # 12.6 H (1.3-7.7) k/uL Lymphocytes # 0.4 L (1.0-4.8) k/uL Monocytes # 0.7 (0-1.0) k/uL Eosinophils # 0.1 (0-0.7) k/uL Basophils # 0.0 (0-0.2) k/uL Sodium 132 L (137-145) mmol/L Potassium 3.4 L (3.5-5.1) mmol/L Chloride 104 (98-107) mmol/L Carbon Dioxide 19 L (22-30) mmol/L Anion Gap 9 mmol/L BUN 5 L (7-17) mg/dL Creatinine 0.62 (0.52-1.04) mg/dL Est GFR (CKD-EPI)AfAm >90 (>60 ml/min/1.73 sqM) Est GFR (CKD-EPI)NonAf >90 (>60 ml/min/1.73 sqM) Glucose 107 H (74-99) mg/dL Plasma Lactic Acid Javier (0.7-2.0) mmol/L Calcium 9.2 (8.4-10.2) mg/dL Total Bilirubin 1.1 (0.2-1.3) mg/dL AST 17 (14-36) U/L ALT 9 (4-34) U/L Alkaline Phosphatase 72 (38-126) U/L Total Protein 6.3 (6.3-8.2) g/dL Albumin 3.4 L (3.5-5.0) g/dL Urine Color Yellow Urine Appearance Cloudy H (Clear) Urine pH 6.5 (5.0-8.0) Ur Specific [place] 1.019 (1.001-1.035) Urine Protein 1+ H (Negative) Urine Glucose (UA) Negative (Negative) Urine Ketones 4+ H (Negative) Urine Blood Negative (Negative) Urine Nitrite Negative (Negative) Urine Bilirubin Negative (Negative) Urine Urobilinogen 3.0 (<2.0) mg/dL Ur Leukocyte Esterase Moderate H (Negative) Urine RBC 1 (0-5) /hpf Urine WBC 36 H (0-5) /hpf Ur Squamous Epith Cells 9 H (0-4) /hpf Urine Bacteria Rare H (None) /hpf Urine Mucus Occasional H (None) /hpf Coronavirus (PCR) (Not Detectd) Influenza Type A RNA (Not Detectd) Influenza Type B (PCR) (Not Detectd) 01/08/21 01/08/21 Range/Units 19:45 19:50 WBC (3.8-10.6) k/uL RBC (3.80-5.40) m/uL Hgb (11.4-16.0) gm/dL Hct (34.0-46.0) % MCV (80.0-100.0) fL MCH (25.0-35.0) pg MCHC (31.0-37.0) g/dL RDW (11.5-15.5) % Plt Count (150-450) k/uL MPV Neutrophils % % Lymphocytes % % Monocytes % % Eosinophils % % Basophils % % Neutrophils # (1.3-7.7) k/uL Lymphocytes # (1.0-4.8) k/uL Monocytes # (0-1.0) k/uL Eosinophils # (0-0.7) k/uL Basophils # (0-0.2) k/uL Sodium (137-145) mmol/L Potassium (3.5-5.1) mmol/L Chloride (98-107) mmol/L Carbon Dioxide (22-30) mmol/L Anion Gap mmol/L BUN (7-17) mg/dL Creatinine (0.52-1.04) mg/dL Est GFR (CKD-EPI)AfAm (>60 ml/min/1.73 sqM) Est GFR (CKD-EPI)NonAf (>60 ml/min/1.73 sqM) Glucose (74-99) mg/dL Plasma Lactic Acid Javier 1.1 (0.7-2.0) mmol/L Calcium (8.4-10.2) mg/dL Total Bilirubin (0.2-1.3) mg/dL AST (14-36) U/L ALT (4-34) U/L Alkaline Phosphatase (38-126) U/L Total Protein (6.3-8.2) g/dL Albumin (3.5-5.0) g/dL Urine Color Urine Appearance (Clear) Urine pH (5.0-8.0) Ur Specific [place] (1.001-1.035) Urine Protein (Negative) Urine Glucose (UA) (Negative) Urine Ketones (Negative) Urine Blood (Negative) Urine Nitrite (Negative) Urine Bilirubin (Negative) Urine Urobilinogen (<2.0) mg/dL Ur Leukocyte Esterase (Negative) Urine RBC (0-5) /hpf Urine WBC (0-5) /hpf Ur Squamous Epith Cells (0-4) /hpf Urine Bacteria (None) /hpf Urine Mucus (None) /hpf Coronavirus (PCR) Not Detected (Not Detectd) Influenza Type A RNA Not Detected (Not Detectd) Influenza Type B (PCR) Not Detected (Not Detectd) - EKG Data -: EKG Interpreted by Me EKG Comments: EKG obtained at 2006 shows sinus tachycardia with a ventricular rate is 127, PA interval 126, QRS duration 70, QT 280, QTc 406. No evidence of ST elevation or depression Disposition Clinical Impression: Pyelonephritis during Disposition: ADMITTED IP TO THIS [facility] Condition: Serious Referrals: Charan Etienne MD [Primary Care Provider] - 1-2 days Decision to Admit Reason: Admit from EC Decision Date: 01/08/21 Decision Time: 21:27
[2021-01-08] MEDS: SODIUM CHLORIDE 0.9% 500 ML 500 ML IV SCH ×3 (20:01→20:50)
[2021-01-08 20:19] LABS: Basophils % (A) 0 %; Eosinophils # (A) 0.1 k/uL (0-0.7); Eosinophils % (A) 0 %; HCT 37.9 % (34.0-46.0); HGB 12.9 gm/dL (11.4-16.0); Lymphocytes # (A) 0.4 k/uL (1.0-4.8); Lymphocytes % (A) 3 %; MCH 30.5 pg (25.0-35.0); MCV 89.7 fL (80.0-100.0); Mean Platelet Volume 7.2; Monocytes # (A) 0.7 k/uL (0-1.0); Monocytes % (A) 5 %; Neutrophils # (A) 12.6 k/uL (1.3-7.7); Neutrophils % (A) 91 %; Platelet Count 170 k/uL (150-450); RBC 4.22 m/uL (3.80-5.40); RDW 12.5 % (11.5-15.5); WBC 13.9 k/uL (3.8-10.6)
[2021-01-08 20:30] LABS: Potassium 3.4 mmol/L (3.5-5.1)
[2021-01-08 20:31] LABS: ALT 9 U/L (4-34); AST 17 U/L (14-36); African American GFR (CKD) >90 (>60 ml/min/1.73 sqM); Albumin 3.4 g/dL (3.5-5.0); Alkaline Phosphatase 72 U/L (38-126); Anion Gap 9 mmol/L; Blood Urea Nitrogen 5 mg/dL (7-17); Calcium 9.2 mg/dL (8.4-10.2); Carbon Dioxide 19 mmol/L (22-30); Chloride 104 mmol/L (98-107); Glucose 107 mg/dL (74-99); Non-African American GFR(CKD) >90 (>60 ml/min/1.73 sqM); Sodium 132 mmol/L (137-145); Total Bilirubin 1.1 mg/dL (0.2-1.3); Total Protein 6.3 g/dL (6.3-8.2)
[2021-01-08 20:32] LABS: Appearance,Urine Cloudy (Clear); Bacteria,Urine Rare /hpf; Bilirubin,Urine Negative (Negative); Blood,Urine Negative (Negative); Color,Urine Yellow; Glucose,Urine (UA) Negative (Negative); Ketones,Urine 4+ (Negative); Leukocyte Esterase,Urine Moderate (Negative); Mucus,Urine Occasional /hpf; Nitrite,Urine Negative (Negative); PH, Urine 6.5 (5.0-8.0); Protein,Urine 1+ (Negative); RBC,Urine 1 /hpf (0-5); Specific Gravity,Urine 1.019 (1.001-1.035); Squamous Epithelial Cell,Urine 9 /hpf (0-4); WBC,Urine 36 /hpf (0-5)
[2021-01-08 21:01] LABS: SARS-CoV-2 RNA Rapid Abbott Not Detected (Not Detectd)
[2021-01-08] MEDS ORDERED: NALOXONE 0.4 MG/ML 1 ML VIAL IV PRN (21:22)
[2021-01-08] MEDS ORDERED: METOCLOPRAMIDE 5 MG/ML 2 ML VIAL IVP PRN (21:25)
[2021-01-08] MEDS ORDERED: POTASSIUM CHLORIDE ER 20 MEQ TAB.ER PO STA (21:57)
[2021-01-08] MEDS ORDERED: ACETAMINOPHEN IV (For NPO) 1,000 MG in EMPTY BAG 1 BAG IVPB ONE (22:00)
[2021-01-08] MEDS: LACTATED RINGERS 1,000 ML IV SCH (22:18)
[2021-01-08] MEDS: PIPERACILLIN-TAZOBACTAM 3.375 GM in SODIUM CHLORIDE 0.9% 100 ML IVPB ONE (22:18)
[2021-01-09] MEDS: PIPERACILLIN-TAZOBACTAM 3.375 GM in SODIUM CHLORIDE 0.9% 100 ML IVPB ONE (00:04)
[2021-01-09] MEDS ORDERED: POTASSIUM CHLORIDE ER 20 MEQ TAB.ER PO ONE (03:00)
[2021-01-09] MEDS: ACETAMINOPHEN IV (For NPO) 1,000 MG in EMPTY BAG 1 BAG IVPB SCH ×3 (04:16→20:00)
[2021-01-09] MEDS: PIPERACILLIN-TAZOBACTAM 3.375 GM in SODIUM CHLORIDE 0.9% 100 ML IVPB SCH ×3 (05:28→22:08)
[2021-01-09 08:22] VITALS: RESP 16
[2021-01-09] MEDS: LACTATED RINGERS 1,000 ML IV SCH ×2 (10:03→16:53)
--- NOTE | 2021-01-09 10:13 | P.HPOB ---
History of Present Illness H&P Date: 01/09/21 Chief Complaint: IUP at 31 weeks, pyelonephritis This is a pleasant 30-year-old 2 para 0010 at 31 weeks that presented to the emergency department on Saturday evening with complaints of right lower quadrant pain, workup for renal lithiasis is negative. Patient presented Saturday evening with complaints of increasing pain and fever. Patient states she took Tylenol at home and the fever was not resolved. On examination she was exquisitely tender in the right flank area urine was noted to be positive for urinary tract infection, white count was noted to be 13. Otherwise her labs were normal. Patient continued to have fevers while in the emergency department despite oral Tylenol. Patient was uncomfortable in addition. Patient was then admitted to labor and delivery for observation IV antibiotics and fluids. Patient notes good movement denies vaginal bleeding or loss of fluid. No complaints are appreciated. Patient has been receiving routine care with Dr. Guidry Review of Systems Constitutional: Reports fatigue, Reports fever, Denies chills Ears, nose, mouth and throat: Denies headache Cardiovascular: Reports leg edema Gastrointestinal: Reports nausea, Reports vomiting, Denies constipation, Denies diarrhea Genitourinary: Reports as per HPI, Reports Past Medical History Past Medical History: Asthma, GERD/Reflux, Osteoarthritis (OA) Additional Past Medical History / Comment(s): Per patient, hx of gastric sleeve in 2019, and gallbladder removal in 2018 History of Any Multi-Drug Resistant Organisms: None Reported Past Surgical History: Bariatric Surgery, Cholecystectomy Additional Past Surgical History / Comment(s): oral surgery gastric sleeve Past Anesthesia/Blood Transfusion Reactions: No Reported Reaction, Family Hisory of Malignant Hyperthermia Additional Past Anesthesia/Blood Transfusion Reaction / Comment(s): brother becomes violent with anesthesia Smoking Status: Never smoker Past Alcohol Use History: None Reported Past Drug Use History: None Reported - Past Family History Mother Family Medical History: Neurologic Disorder Additional Family Medical History / Comment(s): epilepsy, Father Family Medical History: Cancer, Diabetes Mellitus Additional Family Medical History / Comment(s): . Medications and Allergies Home Medications Medication Instructions Recorded Confirmed Type Iron Patch 1 patch TRANSDERM DAILY 02/02/20 01/08/21 History Multivitamin Patch 1 patch TRANSDERM DAILY 02/02/20 01/08/21 History Vitmain B-12 Patch 1 patch TRANSDERM DAILY 02/02/20 01/08/21 History Acetaminophen Tab [Tylenol Tab] 500 - 1,000 mg PO Q6H PRN 01/08/21 01/08/21 History Doxylamine Succinate [Unisom] 25 mg PO HS 01/08/21 01/08/21 History Vitamin D Patch 1 patch TRANSDERM DAILY 01/08/21 01/08/21 History Allergies Allergy/AdvReac Type Severity Reaction Status Date / Time No Known Allergies Allergy Verified 01/08/21 21:15 Exam Osteopathic Statement: *. No significant issues noted on an osteopathic structural exam other than those noted in the History and Physical/Consult. Vital Signs Temp Pulse Pulse Resp BP BP Pulse Ox 01/09/21 03:34 98.1 F 93 18 106/62 99 01/08/21 23:48 102 H 01/08/21 23:35 97.8 F 102 H 18 99/50 96 01/08/21 21:09 102.1 F H 114 H 16 94/50 97 01/08/21 20:06 120 H 01/08/21 19:30 101.1 F H 01/08/21 19:18 99.9 F H 152 H 20 114/69 96 Intake and Output 01/08/21 01/09/21 01/09/21 22:59 06:59 14:59 Other: # Voids 1 Weight 92.533 kg 92.533 kg Targeted physical exam is performed on this date and senior insight manager a well-nourished well-developed female in no acute distress. Patient is noted to have nonlabored breathing, heart has a regular rate and rhythm, abdomen is gravid, patient appears comfortable lying in bed. heart tones are noted to be reassuring for gestational age and she denies contractions. Results Result Diagrams: 01/08/21 19:45 01/08/21 19:45 Abnormal Lab Results - Last 24 Hours (Table) 01/08/21 01/08/21 01/08/21 Range/Units 19:30 19:45 19:45 WBC 13.9 H (3.8-10.6) k/uL Neutrophils # 12.6 H (1.3-7.7) k/uL Lymphocytes # 0.4 L (1.0-4.8) k/uL Sodium 132 L (137-145) mmol/L Potassium 3.4 L (3.5-5.1) mmol/L Carbon Dioxide 19 L (22-30) mmol/L BUN 5 L (7-17) mg/dL Glucose 107 H (74-99) mg/dL Albumin 3.4 L (3.5-5.0) g/dL Urine Appearance Cloudy H (Clear) Urine Protein 1+ H (Negative) Urine Ketones 4+ H (Negative) Ur Leukocyte Esterase Moderate H (Negative) Urine WBC 36 H (0-5) /hpf Ur Squamous Epith Cells 9 H (0-4) /hpf Urine Bacteria Rare H (None) /hpf Urine Mucus Occasional H (None) /hpf Assessment and Plan (1) 31 weeks gestation of Current Visit: Yes Status: Acute Code(s): Z3A.31 - 31 WEEKS GESTATION OF SNOMED Code(s): 22214727 (2) Pyelonephritis during Current Visit: Yes Status: Acute Code(s): O23.00 - INFECTIONS OF KIDNEY IN , UNSPECIFIED TRIMESTER SNOMED Code(s): 95970546530691 Plan: This 30-year-old at 31 weeks gestation with pyelonephritis. Patient is admitted to labor and delivery IV Zosyn and Ofirmev are begun overnight. Patient states she feels much improved this morning. We will encourage increased ambulation and have her eat breakfast. Will reassess her discharge later this morning.
[2021-01-10] MEDS: ACETAMINOPHEN IV (For NPO) 1,000 MG in EMPTY BAG 1 BAG IVPB SCH (02:07)
[2021-01-10] MEDS: PIPERACILLIN-TAZOBACTAM 3.375 GM in SODIUM CHLORIDE 0.9% 100 ML IVPB SCH ×2 (05:41→13:09)
--- NOTE | 2021-01-10 06:53 | P.DS ---
Providers Date of admission: 01/08/21 21:51 Expected date of discharge: 01/10/21 Attending physician: Ana Mauricio Primary care physician: Charan Etienne [facility] Course: This is a 30-year-old female 2 para 0010 who presented at 31 weeks gestation with acute pyelonephritis. Patient was admitted, Pitocin was started every 8 hours along with over this every 6 hours. White count on admission 13, UA consistent with pyelonephritis along with hydronephrosis noted sonographically. Please see dictated history and physical for details. Over the course of the past 48 hours the patient has defervesced nicely. She has been afebrile now for 24 hours. Her flank pain is greatly improved. monitoring has been reactive every shift. On exam there is no CVA tenderness, abdomen is soft and nontender. is vertex to Jhon's maneuvers. Extremities are negative for edema. Her next course of Zosyn is to at noon. Patient is judged to be in good condition for discharge home. She will continue on Keflex 500 mg twice a day for 7 days. She will see me in the office next week for follow-up. I have reminded her to call with any fevers shakes or chills, uterine contractions, decreased movement, or any change in clinical course. Assessment: Pyelonephritis at 39 weeks gestation, greatly improved clinically. Afebrile for 24 hours. Patient Condition at Discharge: Good Plan - Discharge Summary Discharge Rx Participant: No New Discharge Prescriptions: No Action Vitmain B-12 Patch 1 patch TRANSDERM DAILY Multivitamin Patch 1 patch TRANSDERM DAILY Iron Patch 1 patch TRANSDERM DAILY Doxylamine Succinate [Unisom] 25 mg PO HS Acetaminophen Tab [Tylenol Tab] 500 - 1,000 mg PO Q6H PRN PRN Reason: Fever And/ Or Pain Vitamin D Patch 1 patch TRANSDERM DAILY Discharge Medication List Iron Patch 1 patch TRANSDERM DAILY 02/02/20 [History] Multivitamin Patch 1 patch TRANSDERM DAILY 02/02/20 [History] Vitmain B-12 Patch 1 patch TRANSDERM DAILY 02/02/20 [History] Acetaminophen Tab [Tylenol Tab] 500 - 1,000 mg PO Q6H PRN 01/08/21 [History] Doxylamine Succinate [Unisom] 25 mg PO HS 01/08/21 [History] Vitamin D Patch 1 patch TRANSDERM DAILY 01/08/21 [History] Follow up Appointment(s)/Referral(s): Charan Etienne MD [Primary Care Provider] - 1 Week Jenna Guidry MD [STAFF PHYSICIAN] - 1 Week
[2021-01-10 08:13] VITALS: BP 115/64; PULSE 82; TEMP 97.2
[2021-01-10] MEDS: LACTATED RINGERS 1,000 ML IV SCH (13:09)
== END 2021-01-10 17:25 | disposition home or self-care (01) | DRG 832 ==
LOC: EC 19:13 → 4FBP 21:51
PROVIDERS: ADMIT Obstetrics & Gynecology Obstetrics; ATTEND Obstetrics & Gynecology Obstetrics
DX: O23.03 Infections of kidney in pregnancy, third trimester (principal); N13.6 Pyonephrosis; J45.909 Unspecified asthma, uncomplicated; K21.9 Gastro-esophageal reflux disease without esophagitis; M19.90 Unspecified osteoarthritis, unspecified site; Z20.822 Contact with and (suspected) exposure to COVID-19; O99.713 Diseases of the skin and subcutaneous tissue complicating pregnancy, third trimester; O99.513 Diseases of the respiratory system complicating pregnancy, third trimester; K58.0 Irritable bowel syndrome with diarrhea; G89.29 Other chronic pain; O99.843 Bariatric surgery status complicating pregnancy, third trimester; F41.9 Anxiety disorder, unspecified; O99.343 Other mental disorders complicating pregnancy, third trimester; Z83.3 Family history of diabetes mellitus; M54.9 Dorsalgia, unspecified; Z79.899 Other long term (current) drug therapy; Z87.442 Personal history of urinary calculi; Z90.49 Acquired absence of other specified parts of digestive tract; Z3A.31 31 weeks gestation of pregnancy; Z82.49 Family history of ischemic heart disease and other diseases of the circulatory system; Z82.0 Family history of epilepsy and other diseases of the nervous system; Z80.9 Family history of malignant neoplasm, unspecified
CPT/HCPCS: 36415; 76770; 76805; 80053; 81001; 83605; 85025; 87040; 87086; 87502; 87635; 93005; 96365; 96368; 96375; 99284; 99285

== ENCOUNTER 2021-03-04 01:27 | Inpatient (IN) | payer BC, OTHER ==
[2021-03-04] MEDS: LACTATED RINGERS 1,000 ML IV SCH ×3 (03:23→09:25)
[2021-03-04] MEDS: BUTORPHANOL 1 MG/ML 1 ML VIAL IV PRN ×2 (03:24→06:16)
[2021-03-04] MEDS ORDERED: OXYTOCIN 10 UNIT/ML 1 ML VIAL IM PRN (05:12)
[2021-03-04] MEDS ORDERED: CARBOPROST TROMETHAMINE 250 MCG/ML 1 ML AMP IM PRN (05:12)
[2021-03-04] MEDS ORDERED: METHYLERGONOVINE 0.2 MG/ML 1 ML AMP IM PRN (05:12)
[2021-03-04] MEDS ORDERED: TERBUTALINE 1 MG/ML VIAL SQ PRN (05:12)
[2021-03-04] MEDS ORDERED: LIDOCAINE 0.5% (PF) 5 MG/ML (50 ML SDV) SQ PRN (05:12)
[2021-03-04] MEDS ORDERED: LACTATED RINGERS 1,000 ML IV SCH (05:15)
[2021-03-04 06:12] LABS: Basophils % (A) 0 %; Eosinophils % (A) 0 %; HCT 38.7 % (34.0-46.0); HGB 13.3 gm/dL (11.4-16.0); Lymphocytes # (A) 1.4 k/uL (1.0-4.8); Lymphocytes % (A) 11 %; MCH 30.7 pg (25.0-35.0); MCHC 34.4 g/dL (31.0-37.0); MCV 89.2 fL (80.0-100.0); Mean Platelet Volume 7.5; Monocytes # (A) 0.7 k/uL (0-1.0); Monocytes % (A) 6 %; Neutrophils # (A) 10.7 k/uL (1.3-7.7); Neutrophils % (A) 82 %; Platelet Count 179 k/uL (150-450); RBC 4.33 m/uL (3.80-5.40)
[2021-03-04] MEDS ORDERED: OXYTOCIN 30 UNITS/500 ML NS 30 UNIT in SALINE 1 500ML.BAG IV SCH ×2 (08:45→19:45)
[2021-03-04] MEDS ORDERED: SODIUM CHLORIDE 0.9% 100 ML BAG ONE (09:03)
[2021-03-04] MEDS ORDERED: ROPIVACAINE 5MG/ML 20ML VIAL ONE (09:03)
[2021-03-04] MEDS ORDERED: fentaNYL (PF) 50 MCG/ML 5 ML AMP ONE (09:03)
[2021-03-04] MEDS ORDERED: ROPIVACAINE 100 MG, fentaNYL (PF). 200 MCG in SODIUM CHLORIDE 0.9% 76 ML EPIDURAL ONE (09:22)
--- NOTE | 2021-03-04 11:02 | P.HPOB ---
History of Present Illness H&P Date: 03/04/21 Chief Complaint: 39 and one sevenths weeks, active labor The patient is a 30-year-old 2 para 0010 admitted at 39 and one sevenths weeks by good dating parameters. She is admitted in early active labor with all signs reassuring, category 1 heart rate tracing. Her has been complicated by gestational diabetes for which she has had reassuring testing throughout the third trimester. Group B strep status is negative. Obstetrical history: 2 para 0010 with one early spontaneous AB requiring D&C. Current statistics are listed in history present illness. EDC of 03/10/2021 was established by early ultrasound. Laboratory workup done traits of blood type of O+ with a negative antibody screen. Rubella status is immune. The remainder of the laboratory workup was within normal limits. One hour Glucola was elevated and the patient was unable to tolerate a three-hour glucose tolerance test and was therefore treated is a diabetic. Group B strep status is negative. Gynecologic history: Unremarkable with no history of any infections to include STDs. Review of Systems Review of systems is confined to history of present illness. Past Medical History Past Medical History: Asthma, GERD/Reflux, Osteoarthritis (OA) Additional Past Medical History / Comment(s): Per patient, hx of gastric sleeve in 2019, and gallbladder removal in 2018 History of Any Multi-Drug Resistant Organisms: None Reported Past Surgical History: Bariatric Surgery, Cholecystectomy Additional Past Surgical History / Comment(s): oral surgery, gastric sleeve Past Anesthesia/Blood Transfusion Reactions: No Reported Reaction Additional Past Anesthesia/Blood Transfusion Reaction / Comment(s): brother becomes violent with anesthesia Smoking Status: Never smoker Past Alcohol Use History: None Reported Past Drug Use History: None Reported - Past Family History Mother Family Medical History: Neurologic Disorder Additional Family Medical History / Comment(s): Epilepsy Father Family Medical History: Cancer, Diabetes Mellitus, Hypertension Additional Family Medical History / Comment(s): . Medications and Allergies Home Medications Medication Instructions Recorded Confirmed Type Iron Patch 1 patch TRANSDERM DAILY 02/02/20 03/04/21 History Multivitamin Patch 1 patch TRANSDERM DAILY 02/02/20 03/04/21 History Vitmain B-12 Patch 1 patch TRANSDERM DAILY 02/02/20 03/04/21 History Vitamin D Patch 1 patch TRANSDERM DAILY 01/08/21 03/04/21 History Allergies Allergy/AdvReac Type Severity Reaction Status Date / Time No Known Allergies Allergy Verified 01/08/21 21:15 Exam Vital Signs Temp Pulse Resp BP Pulse Ox 03/04/21 04:25 97.3 F L 68 16 126/67 03/04/21 01:36 97.6 F 90 16 120/74 100 Intake and Output 03/03/21 03/04/21 03/04/21 22:59 06:59 14:59 Other: # Voids 1 Weight 97.976 kg In general, this is a well-developed, well-nourished, moderately obese white female in no acute distress. Her heart has a regular rhythm and rate without murmur. Her lungs are clear to auscultation bilaterally in all gunn. Her abdomen is gravid, nondistended, has normal active bowel sounds, soft, nontender, and without any palpable masses aside from uterine fundus. Her extremities without any cyanosis, clubbing, or significant edema and are nontender to palpation bilaterally. Digital cervical examination demonstrates her cervix to be 5-67 m dilated, 80-90% effaced, with the vertex in presentation at -1 station. Artificial rupture of membranes is carried out demonstrating clear fluid. Results Result Diagrams: 03/04/21 05:33 Abnormal Lab Results - Last 24 Hours (Table) 03/04/21 Range/Units 05:33 WBC 13.0 H (3.8-10.6) k/uL Neutrophils # 10.7 H (1.3-7.7) k/uL Assessment and Plan (1) Active labor at term Current Visit: Yes Status: Acute Code(s): EGT7757 - SNOMED Code(s): 74447394 Plan: The patient has been admitted for active management of labor. She will continue to have close maternal and surveillance and expectant management will be practiced. An epidural catheter has been placed for analgesia. She is making change on her own without the addition of Pitocin though this would be added should she stop making change.
[2021-03-04] MEDS ORDERED: HYDROcodone/APAP 5-325MG 1 EACH TAB PO PRN (19:34)
[2021-03-04] MEDS ORDERED: ZOLPIDEM 5 MG TAB PO PRN (19:34)
[2021-03-04] MEDS ORDERED: diphenhydrAMINE 25 MG CAP PO PRN (19:34)
[2021-03-04] MEDS ORDERED: ACETAMINOPHEN TAB 325 MG TAB PO PRN (19:34)
[2021-03-04] MEDS ORDERED: BENZOCAINE/MENTHOL SPRAY 1 GM/SPRAY AEROSOL TOPICAL PRN (19:34)
[2021-03-04] MEDS ORDERED: diphenhydrAMINE 50 MG CAP PO PRN (19:34)
[2021-03-04] MEDS ORDERED: SIMETHICONE 80 MG CHEWABLE PO PRN (19:34)
[2021-03-04] MEDS ORDERED: diphenhydrAMINE 50 MG/ML 1 ML VIAL IVP PRN ×2 (19:34)
[2021-03-04] MEDS ORDERED: LANOLIN CREAM 5 GM TUBE TOPICAL PRN (19:34)
[2021-03-04] MEDS ORDERED: HYDROcodone/APAP 7.5-325MG 1 EACH TAB PO PRN (19:34)
[2021-03-04] MEDS ORDERED: HYDROCORTISONE 2.5% RECTAL CREAM 30 GM TUBE RECTAL PRN (19:34)
--- NOTE | 2021-03-04 19:39 | P.PROBDLV ---
Vaginal Delivery Note - . Vaginal Delivery Note: The patient is a 30-year-old 1 para 0 admitted at 39 and one sevenths weeks by good dating parameters perches admitted in early active labor with all signs reassuring. Her has been, located by presumptive gestational diabetes with normal blood sugar readings throughout and of reassuring testing in the third trimester. Group B strep status was negative. On labor and delivery, she made progress to approximate 5-6 cm is which time artificial rupture of membranes is carried out demonstrating clear fluid. She then made extremely slow progress from 6 cm to approximate 9 cm of the course of approximately 7 hours. The fetus was thought to be in occiput posterior presentation. There are also occasional issues with deep spontaneous decelerations with good return to baseline and good variability thereafter returning to a category 1 tracing. She was given 1 further hour to make change and, upon recheck, was found to be complete with the aditus significantly lower station and now felt to be occiput anterior. She was allowed to push after which time she pushed for approximately 10-15 minutes to a normal spontaneous vaginal delivery of a viable 7 lbs. 9 oz. baby boy with Apgars of 9 at 1 minute and 9 at 5 Mr. delivered in the direct occiput anterior position. The placenta was delivered spontaneously, intact, and grossly normal with a grossly normal centrally inserted three-vessel cord. There was a small second-degree posterior midline laceration which was repaired in standard fashion using 3-0 chromic catgut without difficulty. Estimated blood loss for the case was approximately 150 mL. There were no complications. All sponge, instrument, and needle counts were correct. Both mother and are resting comfortably in recovery.
[2021-03-04] MEDS: IBUPROFEN 600 MG TAB PO SCH (19:47)
[2021-03-04] MEDS: SENNOSIDES-DOCUSATE SODIUM 1 EACH TAB PO SCH (20:19)
[2021-03-05] MEDS: LACTATED RINGERS 1,000 ML IV SCH (00:42)
[2021-03-05] MEDS: IBUPROFEN 600 MG TAB PO SCH ×3 (03:00→17:29)
[2021-03-05 06:22] LABS: Basophils % (A) 0 %; Eosinophils # (A) 0.1 k/uL (0-0.7); Eosinophils % (A) 1 %; HCT 31.4 % (34.0-46.0); HGB 10.9 gm/dL (11.4-16.0); Lymphocytes # (A) 1.4 k/uL (1.0-4.8); Lymphocytes % (A) 12 %; MCHC 34.9 g/dL (31.0-37.0); Mean Platelet Volume 8.2; Monocytes # (A) 0.7 k/uL (0-1.0); Monocytes % (A) 6 %; Neutrophils # (A) 9.6 k/uL (1.3-7.7); Neutrophils % (A) 81 %; Platelet Count 139 k/uL (150-450); RBC 3.53 m/uL (3.80-5.40)
[2021-03-05] MEDS: SENNOSIDES-DOCUSATE SODIUM 1 EACH TAB PO SCH ×2 (08:54→20:47)
--- NOTE | 2021-03-05 10:20 | P.PNOBGVD ---
Subjective - Subjective Patient reports: Reports appetite normal, Reports voiding normally, Reports pain well controlled, Reports ambulating normally : doing well, nursing well Objective - Latest Vital Signs Latest vital signs: Vital Signs Temp Pulse Resp BP 03/05/21 08:00 98.8 F 94 14 121/72 03/05/21 03:41 97.9 F 68 16 120/82 03/05/21 00:00 97.9 F 89 16 127/84 03/04/21 21:20 114 H 16 129/69 03/04/21 20:50 97 16 125/61 03/04/21 20:20 127 H 16 130/73 03/04/21 20:05 114 H 16 126/64 03/04/21 19:50 111 H 16 128/62 03/04/21 19:35 112 H 16 150/81 03/04/21 19:20 98.6 F 113 H 16 115/66 Intake and Output 03/04/21 03/05/21 03/05/21 22:59 06:59 14:59 Intake Total 195.517 304.483 Output Total 350 Balance -154.483 304.483 Intake: Intake, IV Titration 195.517 304.483 Amount Oxytocin 30 Units/500 ml 195.517 304.483 Ns 30 unit In Saline 1 500ml.bag @ Per Protocol IV .Q0M [facility] Rx#:[id number] Output: Urine 200 Straight 200 Estimated Blood Loss 150 Other: # Voids 1 2 - Exam Extremities: Present: normal Abdomen: Present: normal appearance, soft Uterus: Present: normal, firm (The uterine fundus as tonic and nontender around the umbilicus.) - Labs Labs: Abnormal Lab Results - Last 24 Hours (Table) 03/05/21 Range/Units 06:12 WBC 12.0 H (3.8-10.6) k/uL RBC 3.53 L (3.80-5.40) m/uL Hgb 10.9 L (11.4-16.0) gm/dL Hct 31.4 L (34.0-46.0) % Plt Count 139 L (150-450) k/uL Neutrophils # 9.6 H (1.3-7.7) k/uL Assessment and Plan (1) Active labor at term Current Visit: Yes Status: Acute Code(s): BIC8076 - SNOMED Code(s): 35 388144 (2) Normal spontaneous vaginal delivery Current Visit: Yes Status: Acute Code(s): O80 - ENCOUNTER FOR FULL-TERM UNCOMPLICATED DELIVERY SNOMED Code(s): 94460087 Plan: Continue routine care. I would anticipate discharge home tomorrow pending no complications.
[2021-03-06] MEDS: IBUPROFEN 600 MG TAB PO SCH ×2 (00:18→06:12)
[2021-03-06 07:57] VITALS: BP 106/68; PULSE 80; RESP 16; TEMP 97.9
--- NOTE | 2021-03-06 07:57 | P.DS ---
Providers Date of admission: 03/04/21 04:06 Attending physician: Jenna Guidry Primary care physician: Stated None Hospital Course: This is a 30-year-old female 1 para 0 EDC 03/10/2021 at 39 and one sevenths weeks' gestation who presented in active spontaneous labor. Group B strep cultures negative, rubella status immune, blood type O+. Please see dictated history and physical for details. Patient delivered vaginally a liveborn male with scores of 9 and 9 at one and 5 minutes respectively. She had a small second-degree midline perineal laceration an estimated blood loss of 150 mL's. weighed 3435 g or 7 lbs. 9 oz. She did well, please see dictated delivery note for details. This morning the patient and her baby are both doing well. Baby has been circumcised. Patient is voiding, ambulating, passing flatus without difficulty. Vital signs are stable and she is afebrile. Fundus is firm and in the midline, symmetric and 18 week size. Breast-feeding is going well, I have given her prescription for a double electric breast pump. Patient will follow-up with me in the office in 6 weeks. I have reminded her no intercourse, tampons or douching. She will use [id number] Advil or Aleve, or Motrin as needed for pain. She will call with any fevers shakes or chills, foul smelling or copious lochia, with the passage of large blood clots, with any pain not alleviated by [id number] products, or indeed with any concerns. will follow-up with globe changer as per recommendations. Assessment: Doing well second day Patient Condition at Discharge: Good Plan - Discharge Summary Discharge Rx Participant: No New Discharge Prescriptions: No Action Vitmain B-12 Patch 1 patch TRANSDERM DAILY Multivitamin Patch 1 patch TRANSDERM DAILY Iron Patch 1 patch TRANSDERM DAILY Vitamin D Patch 1 patch TRANSDERM DAILY Discharge Medication List Iron Patch 1 patch TRANSDERM DAILY 02/02/20 [History] Multivitamin Patch 1 patch TRANSDERM DAILY 02/02/20 [History] Vitmain B-12 Patch 1 patch TRANSDERM DAILY 02/02/20 [History] Vitamin D Patch 1 patch TRANSDERM DAILY 01/08/21 [History] Follow up Appointment(s)/Referral(s): Jenna Guidry MD [STAFF PHYSICIAN] - 6 Weeks Discharge Disposition: HOME SELF-CARE
== END 2021-03-06 11:40 | disposition home or self-care (01) | DRG 807 ==
LOC: FBPOP 01:27 → 4FBP 04:06
PROVIDERS: ADMIT Obstetrics & Gynecology; ATTEND Obstetrics & Gynecology
PROC: 0KQM0ZZ Repair Perineum Muscle, Open Approach (ICD-10-PCS; principal; 2021-03-04)
PROC: 3E0R3BZ Introduction of Anesthetic Agent into Spinal Canal, Percutaneous Approach (ICD-10-PCS; principal; 2021-03-04)
PROC: 00HU33Z Insertion of Infusion Device into Spinal Canal, Percutaneous Approach (ICD-10-PCS; principal; 2021-03-04)
PROC: 10E0XZZ Delivery of Products of Conception, External Approach (ICD-10-PCS; principal; 2021-03-04)
DX: O24.420 Gestational diabetes mellitus in childbirth, diet controlled (principal); Z37.0 Single live birth; O70.1 Second degree perineal laceration during delivery; O76 Abnormality in fetal heart rate and rhythm complicating labor and delivery; Z3A.39 39 weeks gestation of pregnancy; O99.52 Diseases of the respiratory system complicating childbirth; J45.909 Unspecified asthma, uncomplicated; O99.62 Diseases of the digestive system complicating childbirth; K21.9 Gastro-esophageal reflux disease without esophagitis; M19.90 Unspecified osteoarthritis, unspecified site; O99.844 Bariatric surgery status complicating childbirth; Z79.899 Other long term (current) drug therapy; Z90.49 Acquired absence of other specified parts of digestive tract; Z87.19 Personal history of other diseases of the digestive system; Z98.890 Other specified postprocedural states; Z82.0 Family history of epilepsy and other diseases of the nervous system; Z83.3 Family history of diabetes mellitus; Z82.49 Family history of ischemic heart disease and other diseases of the circulatory system; Z80.9 Family history of malignant neoplasm, unspecified
CPT/HCPCS: 59025; 85025; 86850; 86900; 86901; 96361; 96374; 99215

== ENCOUNTER 2024-05-05 16:48 | Emergency (ER) | payer OTHER ==
[2024-05-05 17:08] VITALS: RESP 18
--- NOTE | 2024-05-05 17:40 | ED ---
Female Urogenital HPI - General Source: patient, RN notes reviewed Mode of arrival: ambulatory Limitations: no limitations <Bere Valladares - Last Filed: 05/05/24 17:38> <Vanesa Saldana - Last Filed: 05/06/24 01:10> - General Chief complaint: Vaginal Bleeding Stated complaint: Heavy Bleeding, Miscarriage Time Seen by Provider: 05/05/24 17:01 - History of Present Illness Initial comments: Pily lauren is a 34-year-old female presents emergency department chief complaint of bleeding and passage of clots. Patient states that she believes she miscarried on 04/30 due to passage of clots and vaginal bleeding. Patient believes that she was roughly 9 weeks . She denies visiting with a OB during this time. Has not had an ultrasound completed. Has a history of low hemoglobin and iron. Endorses mild dizziness. (Bere Valladares) 34 year old female presents to the emergency department for evaluation of vaginal bleeding and passing clots. She reports that her last menstrual period was 03/12/24. She had a positive test about 1 month after this. She states that she started having vaginal bleeding and clots starting on 04/30/24. She states that yesterday she was going through 1 pad/hour. She feels that the bleeding has improved somewhat today. She reports seeing Dr. Medley for gynecological issues but has not been seen for this . She denies any prior ultrasound or hcg since her positive test. She admits to heavy periods. Admits to intermittent abdominal cramping. (Vanesa Saldana) - Related Data Home Medications Medication Instructions Recorded Confirmed Iron Patch 1 patch TRANSDERM DAILY 02/02/20 03/04/21 Multivitamin Patch 1 patch TRANSDERM DAILY 02/02/20 03/04/21 Vitmain B-12 Patch 1 patch TRANSDERM DAILY 02/02/20 03/04/21 Vitamin D Patch 1 patch TRANSDERM DAILY 01/08/21 03/04/21 Allergies Allergy/AdvReac Type Severity Reaction Status Date / Time No Known Allergies Allergy Verified 05/05/24 17:08 Review of Systems ROS Other: All systems not noted in ROS Statement are negative. <Bere Valladares - Last Filed: 05/05/24 17:38> ROS Other: All systems not noted in ROS Statement are negative. <Vanesa Saldana - Last Filed: 05/06/24 01:10> ROS Statement: Those systems with pertinent positive or pertinent negative responses have been documented in the HPI. Past Medical History Past Medical History: Asthma, GERD/Reflux, Osteoarthritis (OA) Additional Past Medical History / Comment(s): Per patient, hx of gastric sleeve in 2020, and gallbladder removal in 2018 History of Any Multi-Drug Resistant Organisms: None Reported Past Surgical History: Bariatric Surgery, Cholecystectomy Additional Past Surgical History / Comment(s): oral surgery, gastric sleeve Past Anesthesia/Blood Transfusion Reactions: No Reported Reaction Additional Past Anesthesia/Blood Transfusion Reaction / Comment(s): brother becomes violent with anesthesia Past Psychological History: Anxiety Smoking Status: Never smoker Past Alcohol Use History: None Reported Past Drug Use History: None Reported - Past Family History Mother Family Medical History: Neurologic Disorder Additional Family Medical History / Comment(s): Epilepsy Father Family Medical History: Cancer, Diabetes Mellitus, Hypertension Additional Family Medical History / Comment(s): . <Bere Valladares - Last Filed: 05/05/24 17:38> General Exam Limitations: no limitations <Bere Valladaers - Last Filed: 05/05/24 17:38> Limitations: no limitations General appearance: alert, in no apparent distress Head exam: Present: atraumatic, normocephalic, normal inspection Eye exam: Present: normal appearance, PERRL, EOMI. Absent: scleral icterus, conjunctival injection, periorbital swelling ENT exam: Present: normal exam, mucous membranes moist Respiratory exam: Present: normal lung sounds bilaterally. Absent: respiratory distress, wheezes, rales, rhonchi, stridor Cardiovascular Exam: Present: regular rate, normal rhythm, normal heart sounds. Absent: systolic murmur, diastolic murmur, rubs, gallop, clicks GI/Abdominal exam: Present: soft, normal bowel sounds. Absent: distended, tenderness, guarding, rebound, rigid External exam: Present: normal external exam Speculum exam: Present: vaginal bleeding Extremities exam: Present: normal inspection, full ROM, normal capillary refill. Absent: tenderness, pedal edema, joint swelling, calf tenderness Neurological exam: Present: alert, oriented X3 Psychiatric exam: Present: normal affect, normal mood Skin exam: Present: warm, dry, intact, normal color. Absent: rash <Vanesa Saldana - Last Filed: 05/06/24 01:10> - General Exam Comments Initial Comments: Visual Physical Exam Vital signs reviewed General: Well-appearing, nontoxic, no acute distress. Head: Normocephalic, atraumatic Eyes: PERRLA, EOMI ENT: Airway patent Chest: Nonlabored breathing Skin: No visual rash, normal skin tone Neuro: Alert and oriented 3 Musculoskeletal: No gross abnormalities (Bere Valladares) Course Vital Signs 05/05/24 05/05/24 05/05/24 17:05 19:41 21:29 Temperature 98.6 F 98.4 F Pulse Rate 101 H 104 H 90 Respiratory 18 18 18 Rate Blood Pressure 111/61 112/75 108/79 O2 Sat by Pulse 93 L 98 100 Oximetry Medical Decision Making <Bere Valladares - Last Filed: 05/05/24 17:38> - Lab Data Result diagrams: 05/05/24 19:32 05/05/24 19:32 <Vanesa Saldana - Last Filed: 05/06/24 01:10> - Medical Decision Making I completed the quick note portion of this chart signed Bere Valladares PA-C (Bere Valladares) Was pt. sent in by a medical professional or institution (PATRICIO Marina, [employer], urgent care, hospital, or intermediate...) When possible be specific @ -No Did you speak to anyone other than the patient for history (EMS, parent, family, police, friend...)? What history was obtained from this source @ -No Did you review nursing and triage notes (agree or disagree)? Why? @ -I reviewed and agree with nursing and triage notes Were old charts reviewed (outside hosp., previous admission, EMS record, old EKG, old radiological studies, urgent care reports/EKG's, intermediate records)? Report findings @ -No old charts were reviewed Differential Diagnosis (chest pain, altered mental status, abdominal pain women, abdominal pain men, vaginal bleeding, weakness, fever, dyspnea, syncope, headache, dizziness, GI bleed, back pain, seizure, CVA, palpatations, mental health, musculoskeletal)? @ -Differential Vaginal Bleeding: Spontaneous , threatened , molar , ectopic , bloody show, incompetent cervix, abruptioplacenta, placenta previa, uterine rupture, dysfunctional uterine bleeding, hemorrhage, uterine fibroids, this is not meant to be an all-inclusive list. EKG interpreted by me (3pts min.). @ -None X-rays interpreted by me (1pt min.). @ -None done CT interpreted by me (1pt min.). @ -None done U/S interpreted by me (1pt. min.). @ -Ultrasound obtained which shows no identifiable intrauterine with a thickened endometrium measuring 2.2 cm What testing was considered but not performed or refused? (CT, X-rays, U/S, labs)? Why? @ -None What meds were considered but not given or refused? Why? @ -None Did you discuss the management of the patient with other professionals (professionals i.e. , PA, SPEEDER WORKER, lab, RT, psych nurse, social media analyst, clinical care coordinator, teacher, sales officer, supervisor case loading)? Give summary @ -Case discussed with Dr. Laureano, [employer] discussed inpatient vs outpatient follow up. Patient hemodynamically stable, she will follow up outpatient and have repeat hcg in 48 hours. Was smoking cessation discussed for >3mins.? @ -No Was critical care preformed (if so, how long)? @ -No Were there social determinants of health that impacted care today? How? (Homelessness, low income, unemployed, alcoholism, drug addiction, transportation, low edu. Level, literacy, decrease access to med. care, [facility], rehab)? @ -No Was there de-escalation of care discussed even if they declined (Discuss DNR or withdrawal of care, Hospice)? DNR status @ -No What co-morbidities impacted this encounter? (DM, HTN, Smoking, COPD, CAD, Cancer, CVA, ARF, Chemo, Hep., AIDS, mental health diagnosis, sleep apnea, mo rbid obesity)? @ -None Was patient admitted / discharged? Hospital course, mention meds given and r oute, prescriptions, significant lab abnormalities, going to OR and other pertinent info. @ -Discharged. Patient presented to the emergency department for vaginal bleeding, possible miscarriage. laboratory studies obtained, normal WBC, hemoglobin 11.9, normal coagulation studies; CMP essentially unremarkable. Quantitative hCG 5481.9; UA shows large blood likely vaginal in origin. Ultrasound was obtained which showed a thickened and heterogenous endometrium measuring 2.2 cm, some irregular 1 cm pocket of fluid density present within likely due to a missed miscarriage with nonvisualized ectopic a possibility. This case was discussed with Dr. Laureano, [employer]. Discussed that this was likely ectopic and more likely related to a missed miscarriage. Patient will be managed outpatient as she is hemodynamically stable. She was provided a prescription for repeat lab draw in 48 hours for hCG. Advised to follow-up with D [employer]. She is understanding agreeable with t his plan. Strict return precautions were discussed. Patient stable at time of discharge. Case discussed with Dr. Thakur. Undiagnosed new problem with uncertain prognosis? @ -No Drug Therapy requiring intensive monitoring for toxicity (Heparin, Nitro, Insulin, Cardizem)? @ -No Were any procedures done? @ -No Diagnosis/symptom? @ -missed miscarriage Acute, or Chronic, or Acute on Chronic? @ -acute Uncomplicated (without systemic symptoms) or Complicated (systemic symptoms)? @ -uncomplicated Side effects of treatment? @ -No Exacerbation, Progression, or Severe Exacerbation? @ -No Poses a threat to life or bodily function? How? (Chest pain, USA, AR, pneumonia, PE, COPD, DKA, ARF, appy, cholecystitis, CVA, Diverticulitis, Homicidal, Suicidal, threat to staff... and all critical care pts) @ -No (Vanesa Saldana) - Lab Data Lab Results 05/05/24 05/05/24 05/05/24 Range/Units 19:11 19:32 19:32 WBC 6.3 (3.8-10.6) k/uL RBC 4.73 (3.80-5.40) m/uL Hgb 11.9 (11.4-16.0) gm/dL Hct 38.0 (34.0-46.0) % MCV 80.4 (80.0-100.0) fL MCH 25.2 (25.0-35.0) pg MCHC 31.3 (31.0-37.0) g/dL RDW 15.4 (11.5-15.5) % Plt Count 207 (150-450) k/uL MPV 7.2 Neutrophils % 66 % Lymphocytes % 25 % Monocytes % 7 % Eosinophils % 0 % Basophils % 1 % Neutrophils # 4.2 (1.3-7.7) k/uL Lymphocytes # 1.6 (1.0-4.8) k/uL Monocytes # 0.5 (0-1.0) k/uL Eosinophils # 0.0 (0-0.7) k/uL Basophils # 0.0 (0-0.2) k/uL PT 10.3 (10.0-12.5) sec INR 0.9 (<1.2) APTT 25.8 (22.0-30.0) sec Sodium (137-145) mmol/L Potassium (3.5-5.1) mmol/L Chloride (98-107) mmol/L Carbon Dioxide (22-30) mmol/L Anion Gap mmol/L BUN (7-17) mg/dL Creatinine (0.52-1.04) mg/dL Est GFR (CKD-EPI)AfAm (>60 ml/min/1.73 sqM) Est GFR (CKD-EPI)NonAf (>60 ml/min/1.73 sqM) Glucose (74-99) mg/dL Calcium (8.4-10.2) mg/dL Total Bilirubin (0.2-1.3) mg/dL AST (14-36) U/L ALT (4-34) U/L Alkaline Phosphatase (38-126) U/L Total Protein (6.3-8.2) g/dL Albumin (3.5-5.0) g/dL HCG, Quant mIU/mL Urine Color Light Red Urine Appearance Cloudy H (Clear) Urine pH 6.5 (5.0-8.0) Ur Specific Foster 1.019 (1.001-1.035) Urine Protein 1+ H (Negative) Urine Glucose (UA) Negative (Negative) Urine Ketones Trace H (Negative) Urine Blood Large H (Negative) Urine Nitrite Negative (Negative) Urine Bilirubin Negative (Negative) Urine Urobilinogen <2.0 (<2.0) mg/dL Ur Leukocyte Esterase Negative (Negative) Urine RBC 112 H (0-5) /hpf Urine WBC 7 H (0-5) /hpf Ur Squamous Epith Cells 3 (0-4) /hpf Urine Bacteria Rare H (None) /hpf Urine Mucus Moderate H (None) /hpf Blood Type Blood Type Recheck Bld Type Recheck Status 05/05/24 05/05/24 Range/Units 19:32 19:32 WBC (3.8-10.6) k/uL RBC (3.80-5.40) m/uL Hgb (11.4-16.0) gm/dL Hct (34.0-46.0) % MCV (80.0-100.0) fL MCH (25.0-35.0) pg MCHC (31.0-37.0) g/dL RDW (11.5-15.5) % Plt Count (150-450) k/uL MPV Neutrophils % % Lymphocytes % % Monocytes % % Eosinophils % % Basophils % % Neutrophils # (1.3-7.7) k/uL Lymphocytes # (1.0-4.8) k/uL Monocytes # (0-1.0) k/uL Eosinophils # (0-0.7) k/uL Basophils # (0-0.2) k/uL PT (10.0-12.5) sec INR (<1.2) APTT (22.0-30.0) sec Sodium 137 (137-145) mmol/L Potassium 3.8 (3.5-5.1) mmol/L Chloride 106 (98-107) mmol/L Carbon Dioxide 24 (22-30) mmol/L Anion Gap 7 mmol/L BUN 9 (7-17) mg/dL Creatinine 0.61 (0.52-1.04) mg/dL Est GFR (CKD-EPI)AfAm >90 (>60 ml/min/1.73 sqM) Est GFR (CKD-EPI)NonAf >90 (>60 ml/min/1.73 sqM) Glucose 94 (74-99) mg/dL Calcium 9.0 (8.4-10.2) mg/dL Total Bilirubin 0.7 (0.2-1.3) mg/dL AST 23 (14-36) U/L ALT 17 (4-34) U/L Alkaline Phosphatase 50 (38-126) U/L Total Protein 6.9 (6.3-8.2) g/dL Albumin 4.2 (3.5-5.0) g/dL HCG, Quant 5481.9 mIU/mL Urine Color Urine Appearance (Clear) Urine pH (5.0-8.0) Ur Specific Foster (1.001-1.035) Urine Protein (Negative) Urine Glucose (UA) (Negative) Urine Ketones (Negative) Urine Blood (Negative) Urine Nitrite (Negative) Urine Bilirubin (Negative) Urine Urobilinogen (<2.0) mg/dL Ur Leukocyte Esterase (Negative) Urine RBC (0-5) /hpf Urine WBC (0-5) /hpf Ur Squamous Epith Cells (0-4) /hpf Urine Bacteria (None) /hpf Urine Mucus (None) /hpf Blood Type O Positive Blood Type Recheck O Pos Bld Type Recheck Status No Disposition <Bere Valladares - Last Filed: 05/05/24 17:38> Is patient prescribed a controlled substance at d/c from ED?: No <Vanesa Saldana - Last Filed: 05/06/24 01:10> Clinical Impression: Threatened , Missed Disposition: HOME SELF-CARE Condition: Stable Instructions (If sedation given, give patient instructions): Miscarriage (ED) Additional Instructions: Please follow up with Dr. Medley. Have HCG repeated in 48 hours. Return to the emergency department for new or worsening symptoms. Referrals: Bong Trevino DO [Primary Care Provider] - 1-2 days Vishal Laureano MD [STAFF PHYSICIAN] - 1-2 days
--- NOTE | 2024-05-05 19:02 | US ---
EXAMINATION TYPE: Ultrasound OB <= 14 week transvaginal DATE OF EXAM: 05/05/2024 6:36 PM COMPARISON: NONE CLINICAL INDICATION: Female, 34 years old with history of concern for miscarriage, est. at 9 weeks; P atient bleeding heavy clots since 04/30. EXAM PERFORMED: Transvaginal (TV) and Transabdominal (TA) EXAM MEASUREMENTS: GESTATIONAL AGE / DATING Physician Established: Not yet established Dates by LMP: (7 weeks/5 days) EDC: 12/17/2024 Dates by Current Scan for: No IUP seen at this time MATERNAL ANATOMY Uterus: 11.0 x 4.8 x 5.4cm. The endometrium is thick and heterogeneous measuring 2.2cm with hypoechoi c streaks seen within. There is no IUP seen at this time. Possible 1 cm irregular area of fluid withi n the endometrium of the uterine body. Right Ovary: 4.2 x 2.1 x 3.1cm. There is a 1.8x 1.5 x 1.9cm anechoic area seen, likely corpus luteum vs other. Left Ovary: 2.7 x 1.6 x 1.7cm Post CDS / Adnexa: WNL as best seen Presence of free fluid: No Presence of corpus luteal cyst: Yes, right ovary Presence of subchorionic bleed: No Date of LMP: 03/12/2024 Beta HcG (if available): Not available at this time IMPRESSION: 1. Thickened and heterogeneous endometrium measuring up to 2.2 cm. Some irregular 1 cm pocket of flui d density present within. In the setting of a (1) positive test, (2) excessive bleeding, an d (3) the absence of a normal intrauterine at a beta hCG greater than 2000... nonvisualized ectopic and failed are considered with the latter being favored. Appropriate fol low-up recommended. 2. A 1.9 cm corpus luteum of the right ovary. 3. No evident adnexal abnormality.
[2024-05-05 19:45] LABS: Basophils % (A) 1 %; Eosinophils % (A) 0 %; HGB 11.9 gm/dL (11.4-16.0); Lymphocytes # (A) 1.6 k/uL (1.0-4.8); Lymphocytes % (A) 25 %; MCH 25.2 pg (25.0-35.0); MCHC 31.3 g/dL (31.0-37.0); MCV 80.4 fL (80.0-100.0); Mean Platelet Volume 7.2; Monocytes # (A) 0.5 k/uL (0-1.0); Monocytes % (A) 7 %; Neutrophils # (A) 4.2 k/uL (1.3-7.7); Neutrophils % (A) 66 %; Platelet Count 207 k/uL (150-450); RBC 4.73 m/uL (3.80-5.40); RDW 15.4 % (11.5-15.5); WBC 6.3 k/uL (3.8-10.6)
[2024-05-05 19:53] LABS: ALT 17 U/L (4-34); AST 23 U/L (14-36); African American GFR (CKD) >90 (>60 ml/min/1.73 sqM); Albumin 4.2 g/dL (3.5-5.0); Alkaline Phosphatase 50 U/L (38-126); Anion Gap 7 mmol/L; Blood Urea Nitrogen 9 mg/dL (7-17); Carbon Dioxide 24 mmol/L (22-30); Chloride 106 mmol/L (98-107); Glucose 94 mg/dL (74-99); Non-African American GFR(CKD) >90 (>60 ml/min/1.73 sqM); Potassium 3.8 mmol/L (3.5-5.1); Sodium 137 mmol/L (137-145); Total Bilirubin 0.7 mg/dL (0.2-1.3); Total Protein 6.9 g/dL (6.3-8.2)
[2024-05-05 19:58] LABS: INR 0.9 (<1.2); Partial Thromboplastin Time 25.8 sec (22.0-30.0); Prothrombin Time 10.3 sec (10.0-12.5)
[2024-05-05 20:06] LABS: Appearance,Urine Cloudy (Clear); Bacteria,Urine Rare /hpf; Bilirubin,Urine Negative (Negative); Blood,Urine Large (Negative); Color,Urine Light Red; Glucose,Urine (UA) Negative (Negative); Ketones,Urine Trace (Negative); Leukocyte Esterase,Urine Negative (Negative); Mucus,Urine Moderate /hpf; Nitrite,Urine Negative (Negative); PH, Urine 6.5 (5.0-8.0); Protein,Urine 1+ (Negative); RBC,Urine 112 /hpf (0-5); Specific Gravity,Urine 1.019 (1.001-1.035); Squamous Epithelial Cell,Urine 3 /hpf (0-4); Urobilinogen,Urine <2.0 mg/dL (<2.0); WBC,Urine 7 /hpf (0-5)
[2024-05-05 20:09] LABS: HCG,Quantitative Serum 5481.9 mIU/mL
[2024-05-05 21:34] VITALS: BP 108/79; PULSE 90; TEMP 98.4
== END 2024-05-05 21:35 | disposition home or self-care (01) ==
LOC: EC 16:48
DX: O20.0 Threatened abortion (principal); Z90.49 Acquired absence of other specified parts of digestive tract; Z3A.09 9 weeks gestation of pregnancy
CPT/HCPCS: 36415; 76801; 76817; 80053; 81001; 84702; 85025; 85610; 85730; 86900; 86901; 99284

== ENCOUNTER → 2024-05-07 | Outpatient (CLI) | payer OTHER ==
[2024-05-07 19:29] LABS: Testosterone 16.6 ng/dL (9.01-47.94)
== END | disposition home or self-care (01) ==
LOC: LABWHC1 13:59
PROVIDERS: ATTEND Family Medicine
DX: E28.2 Polycystic ovarian syndrome (principal)
CPT/HCPCS: 36415; 82626; 83498; 83525; 84402; 84403; 84702

== ENCOUNTER → 2024-06-02 | Outpatient (CLI) | payer OTHER ==
--- NOTE | 2024-06-02 12:07 | US ---
EXAMINATION TYPE: US pelvis complete transvag DATE OF EXAM: 06/02/2024 COMPARISON: US 2023 CLINICAL INDICATION: Female, 34 years old with history of O02.1 MISSED ; Miscarriage in April, bleeding x 30 days TECHNIQUE: . Transabdominal sonographic images of the pelvis were acquired. Transvaginal sonographi c images were medically necessary to better assess the following anatomy: endometrium Date of LMP: 03/12/2024 EXAM MEASUREMENTS: Uterus: 9.8 x 3.8 x 5.2 cm Endometrial Stripe: 1.0 cm Right Ovary: 2.8 x 1.7 x 2.1 cm Left Ovary: 5.3 x 3.4 x 5.7 cm 1. Uterus: anteverted, mildly heterogeneous 2. Endometrium: fluid and increased vascularity within fundal portion of endo 3. Right Ovary: wnl 4. Left Ovary: multiple cysts with largest measuring 4.1cm 5. Bilateral Adnexa: wnl 6. Posterior cul-de-sac: wnl Anteverted mildly heterogenous uterus without focal lesion identified. There is fluid identified with in endometrium with heterogenous appearance and increased vascularity within the fundal portion of th e endometrium. Right ovary is unremarkable. Multiple thin-walled cysts identified within the left ova ry with layering debris. No free fluid identified. IMPRESSION: 1. Findings suggestive of retained products of conception with heterogenous appearance of endometrium and increased vascularity. Direct visualization is recommended. 2. Left ovarian cysts with largest measuring up to 4.1 cm.
== END | disposition home or self-care (01) ==
LOC: RADUSWWP 11:06
PROVIDERS: ATTEND Family Medicine
DX: O02.1 Missed abortion (principal); N83.202 Unspecified ovarian cyst, left side
CPT/HCPCS: 76830; 76856